=== PATIENT | female | born 1970 | race Caucasian/White ===

== ENCOUNTER 2016-10-29 16:28 | Outpatient (CLI) | payer MEDICAID ==
--- NOTE | 2016-10-30 11:02 | XRAY Report ---
LEFT KNEE, FOUR VIEWS: 10/29/2016 HISTORY: Pain. COMPARISON: None. FINDINGS: There is a suprapatellar effusion. Minimal lateral knee joint spurring with a suggestion of possible lateral meniscal chondrocalcinosis. Medial knee joint well-maintained. Mild patellofemo ral articulation degenerative spurring. No fracture or malalignment. IMPRESSION: MINOR EARLY DEGENERATIVE CHANGE LEFT KNEE WITH SUPRAPATELLAR EFFUSION. :9 JOB #: [id number] EXT JOB #:[id number]
== END 2016-10-29 16:29 | disposition home or self-care (01) ==
LOC: DI.S 16:28
PROVIDERS: ATTEND Nurse Practitioner Family
DX: M25.562 Pain in left knee (principal); M25.462 Effusion, left knee

== ENCOUNTER 2017-01-07 13:35 | Outpatient (CLI) | payer MEDICAID ==
[2017-01-07 18:39] LABS: ALBUMIN/GLOBULIN RATIO 1.5 (1.0-2.2); BILIRUBIN,TOTAL 0.5 mg/dL (0.2-1.0); BUN - BLOOD UREA NITROGEN 16 mg/dL (6-20); CALCIUM 9.5 mg/dL (8.5-10.3); CARBON DIOXIDE - CO2 26 mmol/L (21-32); CHLORIDE 104 mmol/L (101-111); CHOL/HDL RATIO 2.2 (<4.4); CHOLESTEROL 161 mg/dL; CREATININE 0.7 mg/dL (0.4-1.0); GFR - MDRD 90 (>89); GLUCOSE 82 mg/dL (70-100); HDL CHOLESTEROL 72 mg/dL; LDL/HDL RATIO 1.1 (<4.4); POTASSIUM 3.5 mmol/L (3.5-5.0); SODIUM 138 mmol/L (135-145); TOTAL PROTEIN 7.2 g/dL (6.7-8.2); TRIGLYCERIDES 52 mg/dL; VLDL CHOLESTEROL 10 mg/dL
[2017-01-07 18:41] LABS: BASOPHILS % (AUTO) 0.6 %; EOSINOPHILS # (AUTO) 0.1 10^3/uL (0.0-0.7); HCT - HEMATOCRIT 38.1 % (37.0-47.0); HGB - HEMOGLOBIN 12.7 g/dL (12.0-16.0); LYMPHOCYTES # (AUTO) 1.9 10^3/uL (1.5-3.5); LYMPHOCYTES % (AUTO) 37.2 %; MEAN CORPUSCULAR HEMOGLOBIN 30.1 pg (27.0-31.0); MEAN CORPUSCULAR HGB CONC 33.2 g/dL (32.0-36.0); MEAN CORPUSCULAR VOLUME 90.7 fL (81.0-99.0); MEAN PLATELET VOLUME 9.7 fL (7.9-10.8); MONOCYTES # (AUTO) 0.4 10^3/uL (0.0-1.0); MONOCYTES % (AUTO) 7.2 %; NEUTROPHILS # (AUTO) 2.7 10^3/uL (1.5-6.6); UNCORRECTED WHITE BLOOD COUNT 5.2 x10^3/uL; WHITE BLOOD COUNT 5.2 x10^3/uL (4.8-10.8)
== END 2017-01-07 13:36 | disposition home or self-care (01) ==
LOC: LAB.S 13:35
PROVIDERS: ATTEND Nurse Practitioner Family
DX: G43.909 Migraine, unspecified, not intractable, without status migrainosus (principal); Z13.6 Encounter for screening for cardiovascular disorders; L98.9 Disorder of the skin and subcutaneous tissue, unspecified
CPT/HCPCS: 36415; 80053; 80061; 84443; 85025

== ENCOUNTER 2017-01-25 10:09 | Outpatient (CLI) | payer MEDICAID ==
--- NOTE | 2017-01-30 08:53 | Ultrasound Report ---
ULTRASOUND RIGHT FACE: 01/25/2017 CLINICAL INDICATION: Palpable abnormalities. TECHNIQUE: Ultrasound of the palpable abnormalities identified by the patient was performed. COMPARISON: CT facial bones 10/06/2011. FINDINGS: The more anterior of the 2 palpable abnormalities appears to correlate with a circumscribed echogenic nodule in the subcutaneous fat, measuring 1.3 x 1.9 x 0.6 cm. This may represent a small lipoma. Alternatively , given the echogenicity of this circumscribed nodule, it may represent an accessory salivary gland. The second palpable abnormality, more posteriorly, correlates with the parotid gland, and contains a 0.9 x 0.7 x 0.5 cm lymph node in the superficial portion of the parotid gland. IMPRESSION: THE MORE ANTERIOR OF THE 2 PALPABLE ABNORMALITIES MAY REPRESENT A SMALL CIRCUMSCRIBED LIPOMA OR A SMALL ACCESSORY SALIVARY GLAND. THE MORE POSTERIOR OF THE 2 PALPABLE ABNORMALITIES CORRELATES WITH THE SUPERFICIAL PORTION OF THE PAROTID GLAND, WITH A NORMAL SIZED INTRAPAROTID LYMPH NODE. TD: 01/25/2017 13:16 JESSY
== END 2017-01-25 10:10 | disposition home or self-care (01) ==
LOC: DI 10:09
PROVIDERS: ATTEND Nurse Practitioner Family
DX: L98.9 Disorder of the skin and subcutaneous tissue, unspecified (principal)
CPT/HCPCS: 76536

== ENCOUNTER 2017-05-23 09:50 | Outpatient (CLI) | payer MEDICAID ==
--- NOTE | 2017-05-24 12:16 | Mammography Report ---
DIGITAL SCREENING MAMMOGRAM: 05/23/2017 CLINICAL INDICATION: A 47-year-old nulliparous patient, for screening. COMPARISON: Report of previous mammogram of 10/26/2004. Films have been purged. TECHNIQUE: Routine CC and MLO projections were obtained of the breasts. FINDINGS: The breasts demonstrate heterogeneously dense fibroglandular parenchyma bilaterally. No suspicious masses, clustered microcalcifications, or regions of architectural distortion are identified. IMPRESSION: NEGATIVE EXAMINATION. RECOMMENDATION: ROUTINE ANNUAL SCREENING UNLESS OTHERWISE CLINICALLY INDICATED. BIRADS CATEGORY 1-NEGATIVE. STANDARD QUALIFYING STATEMENTS: 1. This examination was reviewed with the aid of Computer-Aided Detection (CAD). 2. A negative or benign imaging report should not delay biopsy if clinically suspicious findings are present. Consider surgical consultation if warranted. More than 5% of cancers are not identified by imaging. 3. Dense breasts may obscure an underlying neoplasm. TD: 05/24/2017 12:15
== END 2017-05-23 09:51 | disposition home or self-care (01) ==
LOC: DI.S 09:50
PROVIDERS: ATTEND Nurse Practitioner Family
DX: Z12.31 Encounter for screening mammogram for malignant neoplasm of breast (principal)
CPT/HCPCS: 77067

== ENCOUNTER 2017-06-21 08:00 | Outpatient (CLI) | payer MEDICAID ==
[2017-06-21 18:03] LABS: CREATININE 0.7 mg/dL (0.4-1.0)
[2017-06-21 18:58] LABS: CREATININE,URINE 55.8 mg/dL
[2017-06-21 19:12] LABS: COLLECTION TIME,URINE 1440 min; TOTAL VOLUME,URINE 2650 mL
== END 2017-06-21 08:01 | disposition home or self-care (01) ==
LOC: LAB.F 08:00
PROVIDERS: ATTEND Transplant Surgery
DX: Z00.5 Encounter for examination of potential donor of organ and tissue (principal)
CPT/HCPCS: 36415; 82565; 82575

== ENCOUNTER 2017-06-27 09:07 | Outpatient (CLI) | payer MEDICAID ==
[2017-06-27 18:27] LABS: CREATININE 0.6 mg/dL (0.4-1.0)
[2017-06-27 19:02] LABS: CREATININE,URINE 63.9 mg/dL
== END 2017-06-27 09:08 | disposition home or self-care (01) ==
LOC: LAB.F 09:07
PROVIDERS: ATTEND Transplant Surgery
DX: Z00.5 Encounter for examination of potential donor of organ and tissue (principal)
CPT/HCPCS: 36415; 82565; 82570

== ENCOUNTER 2017-07-29 13:56 | Outpatient (CLI) | payer OTHER, MEDICAID | END 2017-07-29 13:57 | disposition home or self-care (01) | LOC: DI 13:56 | PROVIDERS: ATTEND Internal Medicine | DX: Z00.5 Encounter for examination of potential donor of organ and tissue (principal) | CPT/HCPCS: 93306 ==

== ENCOUNTER 2018-11-03 12:59 | Outpatient (CLI) | payer MEDICAID, OTHER ==
--- NOTE | 2018-11-03 15:05 | XRAY Report ---
Reason: KNEE PAIN LEFT, ACUTE, KNEE JOINT PAIN RIGHT Procedure Date: 11/03/2018 Accession Number: [id number] / [id number] Procedure: XRS - Knee 4 View LT CPT Code: FULL RESULT: EXAM: LEFT KNEE RADIOGRAPHY EXAM DATE: 11/03/2018 01:21 PM. CLINICAL HISTORY: Knee pain left, acute, knee joint pain right. COMPARISON: KNEE 4 VIEW LT 10/29/2016 4:44 PM. TECHNIQUE: 4 views. FINDINGS: Bones: Normal. No fractures or bone lesions. Joints: Normal. No effusion. No subluxations. Soft Tissues: Normal. No soft tissue swelling. IMPRESSION: No fracture or dislocation and no significant degenerative changes detected. RADIA
--- NOTE | 2018-11-03 15:11 | XRAY Report ---
Reason: KNEE PAIN, LEFT ACUTE, KNEE JOINT PAIN RIGHT Procedure Date: 11/03/2018 Accession Number: [id number] / [id number] Procedure: XRS - Knee 4 View RT CPT Code: FULL RESULT: EXAM: RIGHT KNEE RADIOGRAPHY EXAM DATE: 11/03/2018 01:21 PM. CLINICAL HISTORY: Knee pain, left acute, knee joint pain right. COMPARISON: KNEE 4 VIEW LT 11/03/2018 1:20 PM. TECHNIQUE: 4 views. FINDINGS: Bones: Normal. No fractures or bone lesions. Joints: Normal. No significant effusion. No subluxations. Soft Tissues: Normal. No soft tissue swelling. IMPRESSION: No fracture or dislocation is detected. No significant degenerative changes. RADIA
== END 2018-11-03 13:00 | disposition home or self-care (01) ==
LOC: DI.S 12:59
PROVIDERS: ATTEND Family Medicine
DX: M25.561 Pain in right knee (principal); M25.562 Pain in left knee

== ENCOUNTER 2019-06-18 10:57 | Emergency (ER) | payer MEDICAID ==
--- NOTE | 2019-06-18 11:35 | ED Physician Documentation ---
History of Present Illness - Stated complaint Stated Complaint: SOA,H/A - Chief complaint Chief Complaint: General - History obtained from History obtained from: Patient - History of Present Illness Timing: How many days ago (4) - Treatment prior to arrival Treatment prior to arrival: nothing - Additonal information Additional information: 49-year-old female presents today with what she calls a 4-day history of increasing shortness of breath. She states that roughly 4 days ago she started feeling like she was feeling sick. Stated that when she takes a deep breath it was hurting on the left side of her chest. She states that she was afebrile at that time, but developed a diaphoresis last night. She has felt warm, but she does not have a thermometer at home to take her temperature. She has also complained of a sore throat, burning sensation down the center of her chest. 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 Review of Systems Constitutional: reports: Fever, Chills, Sweats. denies: Myalgias, Fatigue, Weight Loss Eyes: reports: Reviewed and negative Ears: reports: Other (ithcy ears). denies: Loss of hearing, Ear pain Nose: reports: Congestion, Sinus pressure / pain Throat: reports: Sore throat. denies: Swollen tonsils Cardiac: reports: Chest pain / pressure (left side, only with deep breath.). denies: Palpitations, Pedal edema Respiratory: reports: Wheezing (x 2 days), Other (painful on left side with deep breath.) GI: reports: Reviewed and negative : reports: Reviewed and negative. 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 : None HEENT: None Psych: None Musculoskeletal: None Derm: None - Past Surgical History Past Surgical History: No - Allergies Allergies/Adverse Reactions: Allergies Allergy/AdvReac Type Severity Reaction Status Date / Time bee venom protein (honey bee) Allergy Unknown Verified 06/18/19 11:08 hydromorphone [From Dilaudid] Allergy Hives Verified 06/18/19 11:08 latex Allergy Unknown Verified 06/18/19 11:08 iv contrast Allergy Unknown Uncoded 06/18/19 11:08 - Social History Does the pt smoke?: Yes Smoking Status: Current some day smoker - Immunizations Immunizations are current?: Yes - POLST Patient has POLST: No PD ED PE NORMAL - General General: Alert and oriented X 3, No acute distress - HEENT HEENT: Atraumatic, PERRL, EOMI, Ears normal, Moist mucous membranes - Neck Neck: No adenopathy - Cardiac Cardiac: RRR, No murmur - Respiratory Respiratory: No respiratory distress, Clear bilaterally - Abdomen Abdomen: Normal bowel sounds, Soft, Non tender, Non distended - Back Back: No CVA TTP, No spinal TTP - Derm Derm: Normal color, Warm and dry, No rash - Extremities Extremities: No deformity, Normal ROM s pain - Neuro Neuro: Alert and oriented X 3, 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 No: Swollen tonsils, Tonsillar exudate, Soft palate petecchiae - Back Back: Normal exam, Normal ROM. No: Vertebral tenderness, Soft tissue tenderness, Limited ROM, CVA TTP right, CVA TTP left Results - Vitals Vitals: Vital Signs - 24 hr 06/18/19 11:01 Temperature 36.3 C L Heart Rate 68 Respiratory 16 Rate Blood Pressure 143/68 H O2 Saturation 98 Oxygen O2 Source Room air - Labs Labs: Laboratory Tests 06/18/19 06/18/19 11:38 11:40 WBC 4.5 L RBC 4.01 L Hgb 12.3 Hct 36.3 L MCV 90.5 MCH 30.7 MCHC 33.9 RDW 12.6 Plt Count 223 MPV 10.3 Neut # (Auto) 2.6 Lymph # (Auto) 1.2 L Garrett # (Auto) 0.4 Eos # (Auto) 0.2 Baso # (Auto) 0.0 Absolute Nucleated RBC 0.00 Nucleated RBC % 0.0 Urine Color YELLOW Urine Clarity CLEAR Urine pH 5.5 Ur Specific [place] <=1.005 Urine Protein NEGATIVE Urine Glucose (UA) NEGATIVE Urine Ketones NEGATIVE Urine Occult Blood TRACE-LYSE Urine Nitrite NEGATIVE Urine Bilirubin NEGATIVE Urine Urobilinogen 0.2 (NORMAL) Ur Leukocyte Esterase NEGATIVE Ur Microscopic Review NOT INDICATED Urine Culture Comments NOT INDICATED - Rads (name of study) No standard instances Radiology: EMP read contemporaneously (normal chest xray.), See rad report PD MEDICAL DECISION MAKING - ED course Complexity details: reviewed results, re-evaluated patient, d/w patient ED course: The pt's chest xray today is normal, lung sounds are clear without wheezing. She is afebrile today. Given her TTP frontal and maxillary sinuses and posterior pharynx with cobbles stoning she is most Surely dealing with acute frontal sinusitis. Patient does not want take antibiotics at this point she would rather do things naturally. Have encouraged patient to get some [id number] allergy medication, nasal spray, guaifenesin to take daily to help clear pain symptoms. Departure - Departure Disposition: 01 Home, Self Care Clinical Impression: Sinusitis chronic, frontal Condition: Good Instructions: ED Sinusitis No Abx Comments: Your chest xray today was normal today, did not show any pneumonia. I recommend that you get some Guaifenesin to take daily to help break up any congestion in your chest. Also I recommended you get some over the counter allergy medication and take it daily for at least the next 2 weeks to 1 month to help alleviate some your allergy symptoms (claritin, Zyrtec, Ana Laura). You can also get some Sudafed to take daily to help dry your sinuses. Drink plenty of clear fluids while you are taking medications to help thin out your secretions to clear them out. Should you develop a fever you are welcome to come back to be reevaluated.
[2019-06-18 11:49] LABS: BILIRUBIN,URINE NEGATIVE (NEGATIVE); GLUCOSE, URINE (UA) NEGATIVE (NEGATIVE); KETONES,URINE (UA) NEGATIVE (NEGATIVE); LEUKOCYTE ESTERASE, URINE NEGATIVE (NEGATIVE); NITRITE,URINE NEGATIVE (NEGATIVE); OCCULT BLOOD,URINE TRACE-LYSE (NEGATIVE); PH,URINE 5.5 PH (5.0-7.5); PROTEIN,URINE NEGATIVE (NEGATIVE); UROBILINOGEN,URINE 0.2 (NORMAL) E.U./dL (NORMAL)
[2019-06-18 11:49] LABS: BASOPHILS % (AUTO) 0.7 %; EOSINOPHILS # (AUTO) 0.2 10^3/uL (0.0-0.7); EOSINOPHILS % (AUTO) 5.1 %; HGB - HEMOGLOBIN 12.3 g/dL (12.0-16.0); LYMPHOCYTES # (AUTO) 1.2 10^3/uL (1.5-3.5); LYMPHOCYTES % (AUTO) 26.6 %; MEAN CORPUSCULAR HEMOGLOBIN 30.7 pg (27.0-31.0); MEAN CORPUSCULAR HGB CONC 33.9 g/dL (32.0-36.0); MEAN CORPUSCULAR VOLUME 90.5 fL (81.0-99.0); MEAN PLATELET VOLUME 10.3 fL (7.9-10.8); MONOCYTES # (AUTO) 0.4 10^3/uL (0.0-1.0); MONOCYTES % (AUTO) 9.8 %; NEUTROPHILS # (AUTO) 2.6 10^3/uL (1.5-6.6); NEUTROPHILS % (AUTO) 57.4 %; PLT - PLATELET COUNT 223 10^3/uL (130-450); RED BLOOD COUNT 4.01 10^6/uL (4.20-5.40); RED CELL DISTRIBUTION WIDTH 12.6 % (12.0-15.0); WHITE BLOOD COUNT 4.5 x10^3/uL (4.8-10.8)
[2019-06-18 11:50] LABS: CLARITY,URINE CLEAR (CLEAR)
--- NOTE | 2019-06-18 12:26 | XRAY Report ---
Reason: cough Procedure Date: 06/18/2019 Accession Number: [id number] / [id number] Procedure: XR - Chest 2 View X-Ray CPT Code: 60844 Final Report FULL RESULT: EXAM: CHEST RADIOGRAPHY EXAM DATE: 06/18/2019 11:58 AM. CLINICAL HISTORY: Chest/back pain with breathing. Congestion. Cough. COMPARISON: None. TECHNIQUE: 2 views. FINDINGS: Lungs/Pleura: No focal opacities evident. No pleural effusion. No pneumothorax. Normal volumes. Mediastinum: Heart size and mediastinal contour are within normal limits. Other: Mild degenerative changes of the thoracic spine. Surgical clips are seen in the medial left upper quadrant. IMPRESSION: 1. No acute disease in the chest. RADIA
[2019-06-18 12:50] VITALS: BP 107/70
== END 2019-06-18 12:51 | disposition home or self-care (01) ==
LOC: ED 10:57
DX: J32.1 Chronic frontal sinusitis (principal); Z20.828 Contact with and (suspected) exposure to other viral communicable diseases; F17.200 Nicotine dependence, unspecified, uncomplicated
CPT/HCPCS: 36415; 71046; 81001; 81003; 81599; 85025; 87086; 99284

== ENCOUNTER 2019-11-16 17:27 | Outpatient (CLI) | payer MEDICAID | END 2019-11-16 17:28 | disposition critical access hospital (66) | LOC: EMS 17:27 | PROVIDERS: ATTEND Surgery | DX: F41.9 Anxiety disorder, unspecified (principal); R20.0 Anesthesia of skin; R20.2 Paresthesia of skin | CPT/HCPCS: A0425; A0429; A0999 ==

== ENCOUNTER 2019-11-16 18:01 | Emergency (ER) | payer MEDICAID ==
[2019-11-16] MEDS ORDERED: LORazepam 2 MG/ML VIAL IVP STA (18:49)
[2019-11-16] MEDS ORDERED: cefTRIAXone 1 GM VIAL IVP STA (18:49)
[2019-11-16 19:01] LABS: BILIRUBIN,URINE NEGATIVE (NEGATIVE); GLUCOSE, URINE (UA) NEGATIVE (NEGATIVE); KETONES,URINE (UA) 15 mg/dL (NEGATIVE); LEUKOCYTE ESTERASE, URINE LARGE (NEGATIVE); NITRITE,URINE NEGATIVE (NEGATIVE); OCCULT BLOOD,URINE NEGATIVE (NEGATIVE); PH,URINE 7.5 PH (5.0-7.5); PROTEIN,URINE NEGATIVE (NEGATIVE); UROBILINOGEN,URINE 0.2 (NORMAL) E.U./dL (NORMAL)
[2019-11-16 19:03] LABS: CLARITY,URINE CLEAR (CLEAR)
--- NOTE | 2019-11-16 19:03 | ED Physician Documentation ---
History of Present Illness - Stated complaint Stated Complaint: ANXIETY - Chief complaint Chief Complaint: General - History obtained from History obtained from: Patient - History of Present Illness Pain level max: 5 Pain level now: 3 - Additonal information Additional information: 49-year-old female with multiple complaints today. The first is that she feels like she is having more frequent panic attacks. She states that she feels anxious, her chest feels tight and she gets tingling in her bilateral hands. This is been ongoing for quite some time. She used to be able to control this with CBD oil, but states that she thinks she needs medication now. The second is a fractured right upper tooth, she states that they started to do a root canal on this tooth, but she lost her dental insurance. She has been placing cotton gauze in the tooth daily when she eats and covering it and oregano oil. Patient also states that she had multiple head and neck injuries in the past and has been having neck pain recently. Nothing makes it better or worse. She states that when she has a panic attack she feels lightheaded and dizzy. Review of Systems Ten Systems: 10 systems reviewed and negative Constitutional: denies: Fever, Chills Eyes: reports: Other (Patient states that if she turns her head quickly to one side or the other she sees ghosting of images. this is intermittent). denies: Decreased vision, Photophobia Ears: denies: Ear pain Nose: denies: Rhinorrhea / runny nose, Congestion Throat: denies: Sore throat Cardiac: denies: Chest pain / pressure, Palpitations Respiratory: denies: Dyspnea, Cough, Wheezing GI: denies: Abdominal Pain, Nausea, Vomiting, Diarrhea Skin: denies: Rash Musculoskeletal: reports: Neck pain. denies: Back pain Neurologic: reports: Syncope (Patient states she had a syncopal event 2 weeks ago after she had stood up and picked up her dogs.). 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 HEENT: None Psych: Anxiety Musculoskeletal: None Derm: None - Past Surgical History Past Surgical History: Yes Ortho: Other - Present Medications Home Medications: Ambulatory Orders Medication Instructions Recorded Confirmed Cefdinir 300 mg PO BID #20 capsule 11/16/19 LORazepam [Ativan] 1 mg PO Q8H PRN #7 tablet 11/16/19 Meclizine HCl 25 mg PO Q6H PRN #20 tablet 11/16/19 - Allergies Allergies/Adverse Reactions: Allergies Allergy/AdvReac Type Severity Reaction Status Date / Time bee venom protein (honey bee) Allergy Unknown Verified 11/16/19 18:05 hydromorphone [From Dilaudid] Allergy Hives Verified 11/16/19 18:05 latex Allergy Unknown Verified 11/16/19 18:05 iv contrast Allergy Unknown Uncoded 06/18/19 11:08 - Social History Does the pt smoke?: Yes Smoking Status: Current every day smoker Does the pt drink ETOH?: Yes Does the pt have substance abuse?: No - Immunizations Immunizations are current?: Yes - POLST Patient has POLST: No PD ED PE NORMAL - Vitals Vital signs reviewed: Yes - General General: Alert and oriented X 3, No acute distress, Well developed/nourished - HEENT HEENT: Atraumatic, PERRL, EOMI, Moist mucous membranes, Pharynx benign (no peritonsillar or retropharyngeal abscess), Other (Fractured right upper molar, there appears to be a decayed molar next to this 1. The tooth appears to have been drilled down into the bone. No drainable abscess. normal phonation. 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, No motor deficit, No sensory deficit, Normal speech Eye Opening: Spontaneous Motor: Obeys Commands Verbal: Oriented GCS Score: 15 - Psych Psych: Normal mood, Normal affect Results - Vitals Vitals: Vital Signs - 24 hr 11/16/19 11/16/19 11/16/19 18:05 18:18 19:58 Temperature 36.6 C 36.6 C 37.1 C Heart Rate 95 95 87 Respiratory 24 24 18 Rate Blood Pressure 114/85 H 114/85 H 127/87 H O2 Saturation 96 96 98 11/16/19 20:17 Temperature 37.1 C Heart Rate 70 Respiratory 16 Rate Blood Pressure 114/85 H O2 Saturation 100 Oxygen O2 Source Room air - EKG (time done) 1857 Rate: Rate (enter#) (60) Rhythm: NSR Bill[place]: Normal Intervals: Normal AK QRS: Normal Ischemia: Normal ST segments - Labs Labs: Laboratory Tests 11/16/19 11/16/19 11/16/19 18:15 18:15 19:05 WBC 5.4 RBC 4.27 Hgb 12.9 Hct 38.5 MCV 90.2 MCH 30.2 MCHC 33.5 RDW 12.0 Plt Count 212 MPV 10.4 Neut # (Auto) 3.2 Lymph # (Auto) 1.5 Banner # (Auto) 0.5 Eos # (Auto) 0.2 Baso # (Auto) 0.0 Absolute Nucleated RBC 0.00 Nucleated RBC % 0.0 Sodium Potassium Chloride Carbon Dioxide Anion Gap BUN Creatinine Estimated GFR (MDRD) Glucose Calcium Total Bilirubin AST ALT Alkaline Phosphatase Total Protein Albumin Globulin Albumin/Globulin Ratio Lipase Urine Color YELLOW Urine Clarity CLEAR Urine pH 7.5 Ur Specific [place] 1.015 1.015 Urine Protein NEGATIVE Urine Glucose (UA) NEGATIVE Urine Ketones 15 H Urine Occult Blood NEGATIVE Urine Nitrite NEGATIVE Urine Bilirubin NEGATIVE Urine Urobilinogen 0.2 (NORMAL) Ur Leukocyte Esterase LARGE H Urine RBC 0-5 Urine WBC 11-25 H Urine WBC Clumps PRESENT Ur Squamous Epith Cells RARE Squamous Urine Bacteria Moderate H Ur Microscopic Review INDICATED Urine Culture Comments INDICATED Urine HCG, Qual NEGATIVE 11/16/19 19:05 WBC RBC Hgb Hct MCV MCH MCHC RDW Plt Count MPV Neut # (Auto) Lymph # (Auto) Banner # (Auto) Eos # (Auto) Baso # (Auto) Absolute Nucleated RBC Nucleated RBC % Sodium 140 Potassium 3.7 Chloride 104 Carbon Dioxide 24 Anion Gap 12.0 BUN 15 Creatinine 1.1 H Estimated GFR (MDRD) 53 L Glucose 95 Calcium 10.2 Total Bilirubin 0.9 AST 19 ALT 15 Alkaline Phosphatase 71 Total Protein 7.7 Albumin 4.5 Globulin 3.2 Albumin/Globulin Ratio 1.4 Lipase 36 Urine Color Urine Clarity Urine pH Ur Specific [place] Urine Protein Urine Glucose (UA) Urine Ketones Urine Occult Blood Urine Nitrite Urine Bilirubin Urine Urobilinogen Ur Leukocyte Esterase Urine RBC Urine WBC Urine WBC Clumps Ur Squamous Epith Cells Urine Bacteria Ur Microscopic Review Urine Culture Comments Urine HCG, Qual - Rads (name of study) head CT Radiology: Prelim report reviewed, EMP read contemporaneously, See rad report (No acute process. ) cervical spine Ct Radiology: Prelim report reviewed, EMP read contemporaneously, See rad report (1. No fracture. 2. Multilevel degenerative disc and facet disease. This could be further assessed with nonemergent outpatient follow-up MRI of the cervical spine, if clinically indicated. ) PD MEDICAL DECISION MAKING - ED course Complexity details: reviewed results, re-evaluated patient, considered differential, d/w patient ED course: Patient with multiple medical issues. Cavit was placed over the cracked tooth. All of the cotton was removed first. She is found to have a UTI. Will place her on antibiotics for the UTI and the dental caries. Patient also given Ativan and her anxiety resolved. Does have degenerative disc and facet disease in her cervical spine, recommend MRI as this may be contributing to the tingling in her fingertips as well. She was also given IV fluids and meclizine. Dizziness improved. We will have her follow-up with her doctor for further evaluation and care. Normal neurological exam. NIH stroke scale of 0. Patient counseled regarding signs and symptoms for which I believe and urgent re-evaluation would be necessary. Patient with good understanding of and agreement to plan and is comfortable going home at this time This document was made in part using voice recognition software. While efforts are made to proofread this document, sound alike and grammatical errors may occur. Departure - Departure Disposition: 01 Home, Self Care Clinical Impression: Dental caries, Anxiety, Degenerative disc disease, cervical UTI (urinary tract infection) Qualifiers: Urinary tract infection type: acute cystitis Hematuria presence: without hematuria Qualified Code(s): N30.00 - Acute cystitis without hematuria Condition: Good Instructions: ED Cavity Dental, ED UTI Cystitis Male, ED Panic Attack Follow-Up: [facility] [Provider Group] [facility] [Provider Group] - Within 1 week Prescriptions: LORazepam [Ativan] 1 mg PO Q8H PRN #7 tablet PRN Reason: Anxiety Cefdinir 300 mg PO BID #20 capsule Meclizine HCl 25 mg PO Q6H PRN #20 tablet PRN Reason: Vertigo Comments: Take all antibiotics until gone. Return if you worsen. Follow-up with your dentist regarding her tooth, we need to be careful to ensure that the infection is not spreading into your maxilla. It is importantly follow-up as soon as possible. You also need to follow-up with your primary care provider for further testing, you likely need an outpatient MRI of your cervical spine to evaluate your degenerative disc and facet disease. Do not drive or operate heavy machinery when taking the Ativan. This will help with the anxiety, but you should not be driving on this medication.
[2019-11-16 19:05] LABS: HCG UR QUAL NEGATIVE
[2019-11-16] MEDS ORDERED: IOVERSOL 320 100 ML VIAL IVP ONE (19:05)
[2019-11-16 19:09] LABS: BASOPHILS % (AUTO) 0.6 %; EOSINOPHILS # (AUTO) 0.2 10^3/uL (0.0-0.7); EOSINOPHILS % (AUTO) 2.8 %; HGB - HEMOGLOBIN 12.9 g/dL (12.0-16.0); LYMPHOCYTES # (AUTO) 1.5 10^3/uL (1.5-3.5); LYMPHOCYTES % (AUTO) 27.1 %; MEAN CORPUSCULAR HEMOGLOBIN 30.2 pg (27.0-31.0); MEAN CORPUSCULAR HGB CONC 33.5 g/dL (32.0-36.0); MEAN CORPUSCULAR VOLUME 90.2 fL (81.0-99.0); MEAN PLATELET VOLUME 10.4 fL (7.9-10.8); MONOCYTES # (AUTO) 0.5 10^3/uL (0.0-1.0); MONOCYTES % (AUTO) 10.1 %; NEUTROPHILS # (AUTO) 3.2 10^3/uL (1.5-6.6); PLT - PLATELET COUNT 212 10^3/uL (130-450); RED BLOOD COUNT 4.27 10^6/uL (4.20-5.40); WHITE BLOOD COUNT 5.4 x10^3/uL (4.8-10.8)
[2019-11-16 19:10] LABS: BACTERIA,URINE Moderate /HPF (None Seen); RBC,URINE 0-5 /HPF (0-5); SQUAMOUS EPITHELIAL CELL,UR RARE Squamous (<= Few); WBC CLUMPS,URINE PRESENT
[2019-11-16 19:22] LABS: ALBUMIN 4.5 g/dL (3.2-5.5); ALBUMIN/GLOBULIN RATIO 1.4 (1.0-2.2); BILIRUBIN,TOTAL 0.9 mg/dL (0.2-1.0); CALCIUM 10.2 mg/dL (8.5-10.3); CREATININE 1.1 mg/dL (0.4-1.0); TOTAL PROTEIN 7.7 g/dL (6.7-8.2)
--- NOTE | 2019-11-16 20:10 | CT Report ---
PROCEDURE: HEAD WO INDICATIONS: headaches, vision changes with turning head TECHNIQUE: Noncontrast 4.5 mm thick angled axial sections acquired from the foramen magnum to the vertex. For r adiation dose reduction, the following was used: automated exposure control, adjustment of mA and/or kV according to patient size. COMPARISON: None. FINDINGS: Image quality: Excellent. CSF spaces: Basal cisterns are patent. No extra-axial fluid collections. Ventricles are normal in size and shape. Brain: No midline shift. No intracranial masses or hemorrhage. [place]-white matter interface is norm al. Skull and face: Calvarium and visualized facial bones are intact, without suspicious lesions. Sinuses: Visualized sinuses and mastoids are clear. IMPRESSION: No acute process. Reviewed by: Esme Romero MD on 11/16/2019 8:09 PM PDT Approved by: Esme Romero MD on 11/16/2019 8:09 PM PDT Station ID: [id number]
--- NOTE | 2019-11-16 20:12 | CT Report ---
PROCEDURE: CERVICAL SPINE WO INDICATIONS: neck pain, vision changes when turning head TECHNIQUE: Noncontrast 3 mm thick sections acquired from the skull base to the T4 level. Sagittal and coronal r eformats were then constructed. For radiation dose reduction, the following was used: automated exp osure control, adjustment of mA and/or kV according to patient size. COMPARISON: None. FINDINGS: Image quality: Excellent. Bones: No fractures or dislocations. Visualized superior ribs are intact. Soft tissues: Prevertebral soft tissues are normal in thickness. No paravertebral hematomas. No ap ical pneumothoraces. Multilevel degenerative disc and facet disease is present. IMPRESSION: 1. No fracture. 2. Multilevel degenerative disc and facet disease. This could be further assessed with nonemergent ou tpatient follow-up MRI of the cervical spine, if clinically indicated. Reviewed by: Esme Romero MD on 11/16/2019 8:10 PM PDT Approved by: Esme Romero MD on 11/16/2019 8:10 PM PDT Station ID: [id number]
[2019-11-16] MEDS ORDERED: SODIUM CHLORIDE 0.9% 1,000 ML IV STA (20:25)
[2019-11-16] MEDS ORDERED: MECLIZINE 12.5 MG TABLET PO STA (20:25)
[2019-11-16 21:12] VITALS: BP 109/69
== END 2019-11-16 21:29 | disposition home or self-care (01) ==
LOC: ED 18:01
DX: N30.00 Acute cystitis without hematuria (principal); S02.5XXA Fracture of tooth (traumatic), initial encounter for closed fracture; M50.30 Other cervical disc degeneration, unspecified cervical region; M47.812 Spondylosis without myelopathy or radiculopathy, cervical region; F17.200 Nicotine dependence, unspecified, uncomplicated; X58.XXXA Exposure to other specified factors, initial encounter
CPT/HCPCS: 36415; 70450; 72125; 80053; 81001; 81025; 83690; 85025; 87086; 93005; 96374; 96375; 99284; A9270; J2060; Q9967; 81003

== ENCOUNTER 2019-12-31 13:26 | Outpatient (CLI) | payer MEDICAID | END 2019-12-31 13:27 | disposition home or self-care (01) | LOC: COV 13:26 | PROVIDERS: ATTEND Family Medicine | DX: R50.9 Fever, unspecified (principal); R05 Cough; R06.2 Wheezing; M79.10 Myalgia, unspecified site; R53.83 Other fatigue; J02.9 Acute pharyngitis, unspecified; R19.7 Diarrhea, unspecified; R09.81 Nasal congestion; Z20.828 Contact with and (suspected) exposure to other viral communicable diseases ==

== ENCOUNTER 2021-11-07 08:00 | Outpatient (CLI) | payer MEDICAID | END 2021-11-07 23:59 | disposition home or self-care (01) | LOC: LAB 08:00 | PROVIDERS: ATTEND Physician Assistant Medical | DX: R10.11 Right upper quadrant pain (principal); Z52.4 Kidney donor | CPT/HCPCS: 87086 ==

== ENCOUNTER 2021-11-07 14:44 | Outpatient (CLI) | payer MEDICAID ==
[2021-11-07 19:48] LABS: BASOPHILS # (AUTO) 0.1 10^3/uL (0.0-0.1); BASOPHILS % (AUTO) 0.9 %; EOSINOPHILS # (AUTO) 0.4 10^3/uL (0.0-0.7); EOSINOPHILS % (AUTO) 6.4 %; HCT - HEMATOCRIT 40.1 % (37.0-47.0); HGB - HEMOGLOBIN 13.2 g/dL (12.0-16.0); LYMPHOCYTES # (AUTO) 1.6 10^3/uL (1.5-3.5); LYMPHOCYTES % (AUTO) 23.4 %; MEAN CORPUSCULAR HEMOGLOBIN 30.2 pg (27.0-31.0); MEAN CORPUSCULAR HGB CONC 32.9 g/dL (32.0-36.0); MEAN CORPUSCULAR VOLUME 91.8 fL (81.0-99.0); MEAN PLATELET VOLUME 11.9 fL (7.9-10.8); MONOCYTES # (AUTO) 0.6 10^3/uL (0.0-1.0); MONOCYTES % (AUTO) 8.6 %; NEUTROPHILS # (AUTO) 4.2 10^3/uL (1.5-6.6); NEUTROPHILS % (AUTO) 60.6 %; PLT - PLATELET COUNT 219 10^3/uL (130-450); RED BLOOD COUNT 4.37 10^6/uL (4.20-5.40); WHITE BLOOD COUNT 6.9 x10^3/uL (4.8-10.8)
[2021-11-07 19:58] LABS: ALBUMIN/GLOBULIN RATIO 1.3 (1.0-2.2); BILIRUBIN,TOTAL 0.4 mg/dL (0.2-1.0); CALCIUM 9.4 mg/dL (8.5-10.3); POTASSIUM 4.7 mmol/L (3.5-5.0); TOTAL PROTEIN 7.2 g/dL (6.7-8.2)
== END 2021-11-07 14:45 | disposition home or self-care (01) ==
LOC: LAB.S 14:44
PROVIDERS: ATTEND Physician Assistant Medical
DX: R10.9 Unspecified abdominal pain (principal)
CPT/HCPCS: 36415; 80053; 85025

== ENCOUNTER 2022-10-18 11:28 | Outpatient (CLI) | payer MEDICAID | END 2022-10-18 11:29 | disposition critical access hospital (66) | LOC: EMS 11:28 | DX: R07.89 Other chest pain (principal); M54.9 Dorsalgia, unspecified; F41.9 Anxiety disorder, unspecified | CPT/HCPCS: A0425; A0429; A0999 ==

== ENCOUNTER 2022-10-18 12:06 | Emergency (ER) | payer MEDICAID ==
--- NOTE | 2022-10-18 12:17 | ED Physician Documentation ---
PD HPI CHEST PAIN - Stated complaint Stated Complaint: CHEST/BACK PX - Chief complaint Chief Complaint: Cardiac - History obtained from History obtained from: Patient, EMS - Additional information Additional information: 52-year-old woman with history of elective nephrectomy for donation, long COVID, anxiety with family history of Kacey-Danlos and diabetes in her mom and A-fib in her dad. Last night she was taking a shower that she was thought was too hot. She got dizzy and fell. She caught herself with her hands and then hit her cheek which is still mildly painful on the right on the edge of the tub. She vacillates as to whether or not she passed out but does not think she did. She was feeling weak and dizzy persistently after that last night and this morning developed mid/upper back pain. It radiated to the chest slightly but really she only noticed the chest pain when it was palpated. She came from the clinic with an unremarkable EKG but persistent mostly back pain. She received aspirin prior to arrival. She declines pain medications on initial evaluation. 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 : None, Incontinence, Nocturia, Frequency HEENT: None Psych: Anxiety, Panic attacks Musculoskeletal: Chronic back pain Derm: None - Past Surgical History Past Surgical History: Yes Ortho: Other - Present Medications Home Medications: Ambulatory Orders Medication Instructions Recorded Confirmed Carisoprodol [Soma] 350 mg PO Q8HR PRN #15 tablet 10/18/22 HYDROcod/ACETAM 5/325 [Paxinos 5/325] 1 - 2 tab PO Q6H PRN #7 tablet 10/18/22 Lidocaine Patch 5% [Lidoderm Patch] 1 patch TOP DAILY PRN #10 patch 10/18/22 - Allergies Allergies/Adverse Reactions: Allergies Allergy/AdvReac Type Severity Reaction Status Date / Time bee venom protein (honey bee) Allergy Unknown Verified 10/18/22 12:11 hydromorphone [From Dilaudid] Allergy Hives Verified 10/18/22 12:11 latex Allergy Unknown Verified 10/18/22 12:11 iv contrast Allergy Unknown Uncoded 10/18/22 12:11 - Social History Does the pt smoke?: Yes Smoking Status: Light tobacco smoker Does the pt drink ETOH?: Yes Does the pt have substance abuse?: No - Immunizations Immunizations are current?: Yes - POLST Patient has POLST: No PD ED PE NORMAL - Vitals Vital signs reviewed: Yes - General General: Alert and oriented X 3, Other (Appears uncomfortable from pain and slightly anxious) - HEENT HEENT: PERRL, EOMI - Neck Neck: Supple, no meningeal sign, No bony TTP - Cardiac Cardiac: RRR, No murmur, Other (Quite tender to the mid and upper back and also the sternum.) - Respiratory Respiratory: No respiratory distress, Clear bilaterally - Abdomen Abdomen: Non tender - Derm Derm: Normal color, Warm and dry - Extremities Extremities: No edema, No calf tenderness / cord - Neuro Neuro: Alert and oriented X 3, Normal speech Results - Vitals Vitals: Vital Signs - 24 hr 10/18/22 10/18/22 10/18/22 12:08 14:26 14:27 Temperature 36.1 C L Heart Rate 70 62 64 Respiratory 16 17 17 Rate Blood Pressure 130/71 134/89 H 122/80 O2 Saturation 100 99 97 10/18/22 10/18/22 10/18/22 14:32 15:20 16:00 Temperature Heart Rate 59 L 58 L 59 L Respiratory 16 18 12 Rate Blood Pressure 133/78 H 121/62 128/68 O2 Saturation 97 100 97 Oxygen O2 Source Room air - EKG (time done) 1219 EKG releavant findings:: EKG personally interpreted by author of this note. Relevant findings are: Rate: Rate (enter#) (57) Rhythm: NSR Cass: Normal Intervals: Prolonged OH, Wide QRS (mild ivcd qrsd 121) QRS: Normal Ischemia: Normal ST segments - Labs Labs: Laboratory Tests 10/18/22 10/18/22 12:29 12:29 WBC 5.4 RBC 4.26 Hgb 12.8 Hct 38.2 MCV 89.7 MCH 30.0 MCHC 33.5 RDW 12.7 Plt Count 227 MPV 10.8 Neut # (Auto) 3.0 Lymph # (Auto) 1.7 Marshall # (Auto) 0.4 Eos # (Auto) 0.2 Baso # (Auto) 0.1 Absolute Nucleated RBC 0.00 Nucleated RBC % 0.0 Sodium 138 Potassium 3.7 Chloride 108 Carbon Dioxide 23 Anion Gap 7.0 BUN 20 Creatinine 0.9 Estimated GFR (MDRD) 66 L Glucose 88 Calcium 10.3 Total Bilirubin 0.3 AST 34 ALT 42 Alkaline Phosphatase 81 Troponin I High Sens 2.5 Total Protein 6.9 Albumin 4.2 Globulin 2.7 Albumin/Globulin Ratio 1.6 Lipase 33 - Rads (name of study) 1v chest- NAD Relevant Findings:: Final report received, EMP independent interpretation of test CT cervical spine showing minimal degenerative changes, no acute disease Relevant Findings:: Final report received, EMP independent interpretation of test CT angio chest demonstrates gallstones, Relevant Findings:: Final report received, EMP independent interpretation of test PD Medical Decision Making - ED course ED course: She had a syncopal or near syncopal episode last night and a hot shower, and then fell. This morning with chest and back pain. He does get a lot worse with rotation and palpation suggesting a musculoskeletal cause. That said with the family history of Kacey-Danlos a dissection must be considered in ACS as well. She had a nonischemic EKG and negative troponin. She is PERC negative. She went over to CT, the military technician noted to me that she had "a delayed reaction to iodine" in the past and she was administered dexamethasone to prevent that. On return from CT she noted increased neck pain and did have some mild diffuse C- spine tenderness and was sent back for cervical spine CT. This was also negative. By process of elimination I think she is having a lot of chest wall and musculoskeletal back pain related to her syncopal episode last night. Discussed need for follow-up with her primary for the syncope. Departure - Departure Disposition: 01 Home, Self Care Clinical Impression: Syncope Qualifiers: Syncope type: unspecified Qualified Code(s): R55 - Syncope and collapse Chest pain Qualifiers: Chest pain type: unspecified Qualified Code(s): R07.9 - Chest pain, unspecified Back pain Qualifiers: Back pain location: thoracic back pain Back pain laterality: midline Condition: Good Record reviewed to determine appropriate education?: Yes Instructions: ED Strain Chest Wall, ED Fainting Unkn Cause Prescriptions: Carisoprodol [Soma] 350 mg PO Q8HR PRN #15 tablet PRN Reason: Spasms Lidocaine Patch 5% [Lidoderm Patch] 1 patch TOP DAILY PRN #10 patch PRN Reason: pain HYDROcod/ACETAM 5/325 [Paxinos 5/325] 1 - 2 tab PO Q6H PRN #7 tablet PRN Reason: Pain Comments: You were seen today because you passed out last night and then developed chest and back pain today. There was really no abnormal findings on your labs which included specific heart testing, your EKG, and a CAT scan of your chest and neck with the exception of the incidental finding of gallstones. Call your doctor to arrange a follow-up appointment, make the next available appointment. In the interim, return anytime if worse or if new symptoms develop. I sent your prescription electronically to the [facility] in [place]. I am prescribing a short course of narcotic pain medication for you. These are potentially dangerous and addictive medications that should be used carefully. These medications may constipate you. Take an uteb-izb-zoaaqwd stool softener (docusate) twice daily with plenty of water while taking these medications. If you go 24 hours without a bowel movement, take [id number]-jth-[id number] miralax, per package instructions. Do not drink or drive while taking these medications. If you received narcotic or sedating medications while in the emergency department, do not drive for 24 hours. Store this medication in a safe, secure place and out of reach of children. It is a violation of federal law to give or sell this medication to another person or to use in a manner other than prescribed. The ED will not refill narcotic prescriptions, including prescriptions lost or stolen. To dispose of unwanted medications: 1. [facility] provides a [facility] box for medication in pill form only (no liquids) 8:00 am to 4:30 p.m. Saturday-Saturday in the lobby of the [facility], [address] [place] [address]. Empty pills into ziplock bag before disposal. Call [phone] for information. 2.[employer] is a free service available to all [facility] residents. Go to [email or web address] Note that many narcotic pain relievers also contain Tylenol/acetaminophen. Please ensure that your total dose of acetaminophen from all sources does not exceed 3 g (3000 mg) per day. Forms: PCP List
[2022-10-18] MEDS ORDERED: MORPHINE 10 MG/ML VIAL IVP STA (12:21)
[2022-10-18 12:33] LABS: BASOPHILS # (AUTO) 0.1 10^3/uL (0.0-0.1); BASOPHILS % (AUTO) 0.9 %; EOSINOPHILS # (AUTO) 0.2 10^3/uL (0.0-0.7); EOSINOPHILS % (AUTO) 3.5 %; HCT - HEMATOCRIT 38.2 % (37.0-47.0); HGB - HEMOGLOBIN 12.8 g/dL (12.0-16.0); LYMPHOCYTES # (AUTO) 1.7 10^3/uL (1.5-3.5); LYMPHOCYTES % (AUTO) 32.2 %; MEAN CORPUSCULAR HGB CONC 33.5 g/dL (32.0-36.0); MEAN CORPUSCULAR VOLUME 89.7 fL (81.0-99.0); MEAN PLATELET VOLUME 10.8 fL (7.9-10.8); MONOCYTES # (AUTO) 0.4 10^3/uL (0.0-1.0); NEUTROPHILS % (AUTO) 55.2 %; PLT - PLATELET COUNT 227 10^3/uL (130-450); RED BLOOD COUNT 4.26 10^6/uL (4.20-5.40); RED CELL DISTRIBUTION WIDTH 12.7 % (12.0-15.0); WHITE BLOOD COUNT 5.4 x10^3/uL (4.8-10.8)
--- NOTE | 2022-10-18 12:46 | XRAY Report ---
PROCEDURE: Chest 1 View X-Ray INDICATIONS: Chest Pain TECHNIQUE: One view of the chest was acquired. COMPARISON: 06/18/2019 FINDINGS: Surgical changes and devices: None. Lungs and pleura: No pleural effusions or pneumothorax. Lungs are clear. Mediastinum: Mediastinal contours appear normal. Heart size is normal. Bones and chest wall: No suspicious bony lesions. Overlying soft tissues appear unremarkable. IMPRESSION: No acute process. Reviewed by: Esme Romero MD on 10/18/2022 12:45 PM PDT Approved by: Esme Romero MD on 10/18/2022 12:45 PM PDT Station ID: [id number]
[2022-10-18 12:47] LABS: ALBUMIN 4.2 g/dL (3.2-5.5); ALBUMIN/GLOBULIN RATIO 1.6 (1.0-2.2); BILIRUBIN,TOTAL 0.3 mg/dL (0.2-1.0); CALCIUM 10.3 mg/dL (8.5-10.3); CREATININE 0.9 mg/dL (0.6-1.3); POTASSIUM 3.7 mmol/L (3.5-4.5); TOTAL PROTEIN 6.9 g/dL (6.4-8.9)
[2022-10-18 12:53] LABS: TROPONIN I HIGH SENSITIVITY 2.5 ng/L (2.3-14.8)
[2022-10-18] MEDS ORDERED: DEXAMETHASONE 10 MG/ML VIAL IVP STA (13:01)
[2022-10-18] MEDS ORDERED: CYCLOBENZAPRINE 10 MG TABLET PO STA (13:33)
--- NOTE | 2022-10-18 13:56 | CT Report ---
PROCEDURE: ANGIO CHEST W/WO INDICATIONS: Aortic protocol, chest and back pain CONTRAST: 80ml omni 300 TECHNIQUE: After the administration of intravenous contrast, 2 mm axial images were acquired from the pulmonary apices to the posterior costophrenic angles during the arterial phase. In addition, 1 mm lung kernel and 5 mm soft tissue kernel reconstructions were performed. 3-dimensional coronal oblique maximum int ensity projection (MIP) reformats, 8 mm axial MIP, and 5 mm coronal and sagittal MPR reformats were t hen performed through the thorax. For radiation dose reduction, the following was used: automated exp osure control, adjustment of mA and/or kV according to patient size. COMPARISON: None FINDINGS: Image quality: Good Lungs and pleura:No dense consolidation. No pleural effusions. Mild basal scarring/atelectasis. Mediastinum, heart, and esophagus: On precontrast imaging, no intramural hematoma is identified. On a rterial phase imaging, no evidence of aneurysm or dissection. Left renal artery is absent. Coronary c alcifications are seen. No central pulmonary embolism. Small hiatal hernia. No pathologic lymph nodes by size criteria. Evaluation of the ascending aorta is limited due to motion. Chest wall and thyroid: Unremarkable Upper abdomen: Cholelithiasis. No gross abnormality on these arterial phase images. Left nephrectomy changes Bones: No acute or suspicious osseous finding. IMPRESSION: No acute aortic syndrome identified. No acute thoracic abnormality. Other findings as above. Coronary calcifications are seen. Reviewed by: Rashel Chanel MD on 10/18/2022 1:55 PM PDT Approved by: Rashel Chanel MD on 10/18/2022 1:55 PM PDT Station ID: [id number]
[2022-10-18] MEDS ORDERED: LIDOCAINE PATCH 5% TOP STA (15:41)
--- NOTE | 2022-10-18 16:08 | CT Report ---
PROCEDURE: CERVICAL SPINE WO INDICATIONS: neck inj TECHNIQUE: Noncontrast 3 mm thick sections acquired from the skull base to the T4 level. Sagittal and coronal r eformats were then constructed. For radiation dose reduction, the following was used: automated exp osure control, adjustment of mA and/or kV according to patient size. COMPARISON: 11/16/2019 FINDINGS: Image quality: Good Bones: Minimal degenerative changes. Vertebral body heights are well-maintained. No traumatic subluxa tion. Soft tissues: Similar prominent right paratracheal lymph node. No pathologic prevertebral soft tissue swelling. IMPRESSION: Minimal degenerative changes. No acute fracture or traumatic subluxation. If there is high concern fo r further derangement, consider MRI evaluation. Reviewed by: Rashel Chanel MD on 10/18/2022 4:07 PM PDT Approved by: Rashel Chanel MD on 10/18/2022 4:07 PM PDT Station ID: [id number]
[2022-10-18 16:17] VITALS: O2SAT 97
[2022-10-18] MEDS ORDERED: IOVERSOL 320 100 ML VIAL IVP ONE (16:32)
[2022-10-18 16:46] VITALS: BP 125/67
== END 2022-10-18 16:45 | disposition home or self-care (01) ==
LOC: ED 12:06
DX: R55 Syncope and collapse (principal); R07.9 Chest pain, unspecified; M54.6 Pain in thoracic spine; Z72.0 Tobacco use
CPT/HCPCS: 36415; 71045; 71275; 72125; 80053; 83690; 84484; 85025; 93005; 96374; 96375; 99284; A9270; Q9967

== ENCOUNTER 2023-12-30 13:05 | Observation (INO) ==
--- NOTE | 2023-12-30 14:06 | ED Physician Documentation ---
History of Present Illness Stated complaint Stated Complaint: ABD PX Chief complaint Chief Complaint: Abd Pain History obtained from History obtained from: Patient Additonal information Additional information: The patient comes to the emergency department chief complaint of upper back pain, left upper quadrant/left lower rib cage pain, nausea, and pain with deep breaths on the left that started about an hour and a half ago. 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 The patient states that the medics gave her some morphine and route and after the gave her the morphine, she began to notice a [place], water like appearance of her vision on the right and then developed a blind spot in her right peripheral vision. She has a history of cluster headaches and possibly migraines, but has never had an ocular migraine. No history of stroke. Patient has a history of anxiety but she is otherwise fairly healthy. She has a history of gallstones previously but has not had her gallbladder removed. She has donated her left kidney. No other complaints at this time. Meds/Allgy Home Medications Ambulatory Orders Medication Instructions Recorded Confirmed carisoprodol 350 mg tablet (Soma) 350 mg PO Q8HR PRN Spasms #15 tabs 10/18/22 hydrocodone 5 mg-acetaminophen 325 1 - 2 tab PO Q6H PRN Pain #7 tabs 10/18/22 mg tablet lidocaine 5 % topical patch 1 patch topical DAILY PRN pain #10 10/18/22 patches Allergies Allergies Allergy/AdvReac Type Severity Reaction Status Date / Time bee venom protein (honey bee) Allergy Unknown Verified 12/30/23 13:08 hydromorphone (From Dilaudid) Allergy Hives Verified 12/30/23 13:08 latex Allergy Unknown Verified 10/18/22 12:11 iv contrast Allergy Unknown Uncoded 10/18/22 12:11 PFSH Social History Social History Smoking Status: Light tobacco smoker Relationship: Do you feel safe in your home environment?: Yes Suffered physical, verbal, emotional, or financial abuse?: No History of Abuse: No Frequency: Occasional POLST Patient has POLST: No Exam Constitutional normal general appearance The patient appears uncomfortable, clutching her left upper quadrant and writhing around. HENMT normocephalic, head/scalp atraumatic, external nose normal and oral mucous membranes normal Eyes EOMs intact bilaterally Neck/C-Spine visual inspection normal and supple Respiratory breath sounds equal bilaterally, normal respiratory effort and clear to auscultation bilaterally Cardiovascular normal heart rate noted, regular rhythm noted and no edema Gastrointestinal abdomen normal to inspection, abdomen soft to palpation and nondistended Tenderness to palpation at the border between the left upper abdomen and the left inferior costal margin. Genitourinary no CVA tenderness Extremities normal to inspection Neurology Alert, grossly intact Psychiatry mental status grossly normal Skin skin color normal Results Vitals Vitals: Vital Signs - 24 hr 12/30/23 13:08 12/30/23 13:39 12/30/23 14:20 Temperature 36.8 C Temperature Source Tympanic Pulse Rate 64 60 Respiratory Rate 18 16 Blood Pressure 150/90 H 130/42 L O2 Saturation 97 97 O2 Source Room air Room air Pain Intensity 7 9 8 12/30/23 14:20 12/30/23 15:12 Temperature Temperature Source Pulse Rate 64 Respiratory Rate 19 Blood Pressure 127/67 O2 Saturation 96 O2 Source Room air Pain Intensity 8 7 Oxygen O2 Source Room air Labs Labs: Laboratory Tests 12/30/23 12/30/23 13:50 14:20 WBC 5.3 RBC 4.13 L Hgb 12.6 Hct 38.1 MCV 92.3 MCH 30.5 MCHC 33.1 RDW 12.6 Plt Count 222 MPV 10.6 Neut # (Auto) 2.9 Lymph # (Auto) 1.7 Rankin # (Auto) 0.3 Eos # (Auto) 0.3 Baso # (Auto) 0.0 Absolute Nucleated RBC 0.00 Nucleated RBC % 0.0 PT 11.6 INR 1.0 Sodium 141 Potassium 3.8 Chloride 106 Carbon Dioxide 26 Anion Gap 9.0 BUN 17 Creatinine 1.0 Estimated GFR (MDRD) 58 L Glucose 89 Calcium 9.8 Total Bilirubin 0.4 AST 16 ALT 10 Alkaline Phosphatase 73 Total Protein 6.9 Albumin 4.6 Globulin 2.3 Albumin/Globulin Ratio 2.0 Lipase 41 Urine Color YELLOW Urine Clarity CLEAR Urine pH 6.0 Ur Specific [place] 1.010 Urine Protein NEGATIVE Urine Glucose (UA) NEGATIVE Urine Ketones NEGATIVE Urine Occult Blood NEGATIVE Urine Nitrite NEGATIVE Urine Bilirubin NEGATIVE Urine Urobilinogen 0.2 (NORMAL) Ur Leukocyte Esterase NEGATIVE Ur Microscopic Review NOT INDICATED Urine Culture Comments NOT INDICATED Rads (name of study) Left wrist x-ray series: Relevant Findings:: Final report received and See rad report (Negative) Left knee x-ray series: Relevant Findings:: Discussed with rads and See rad report (Negative) PD Medical Decision Making ED course Complexity details: reviewed old records, reviewed results, re-evaluated patient, considered differential and d/w patient ED course: The patient seemed to be in a lot of pain and I was somewhat concerned regarding the upper back pain and abdominal pain that seemed sudden and severe. The patient had normal vital signs and seemed otherwise stable but was visibly uncomfortable. The patient also had the sense of wavering in her vision and then a lateral blind spot. I did consider an ocular migraine but felt the patient should out of an abundance of caution have imaging of her brain. I ordered symptomatic treatment for her in the form of an IV fluid bolus as well as morphine, Phenergan, and Toradol. Prior to receiving the medications ordered, the patient requested to go to the bathroom and got up to walk there. While in the bathroom, she had a syncopal episode and fell, hitting her head and also her left knee and wrist. She was only unconscious for a matter of seconds, but I was concerned about the pain and now the syncopal episode, and decided to obtain CT angiogram of the chest and abdomen, in addition to a CT of the head. These are pending at this time. The patient had full range of motion of both complained of quite a bit of pain and so x-rays were performed of both sites. These were found to be negative. The patient still received the medications ordered, though I did instruct nursing staff not to have her get up unattended or walk anywhere. The patient reported feeling much better after the meds and her vital signs remained normal. At this point in time, her laboratory studies have returned, And overall are unremarkable. She has normal white blood cell counts and hemoglobin, and her urinalysis is negative. Her ER abdominal panel is unremarkable. At this point in time, the patient is signed out to Dr. Shaffer at change of shift, pending her imaging studies. She is also pending final disposition. Discharge Plan Discharge Prescriptions: No Action hydrocodone-acetaminophen 1 TAB tablet 1 - 2 tab PO Q6H PRN (Reason: Pain) Qty: 7 0RF lidocaine 1 PATCH adhesive patch,medicated 1 patch topical DAILY PRN (Reason: pain) Qty: 10 0RF Rx Instructions: apply to affected area for 12 hours and then off for 12 hours. carisoprodol [Soma] 350 MG tablet 350 mg PO Q8HR PRN (Reason: Spasms) Qty: 15 0RF Print Language: Persian Stand Alone Forms: PCP List
[2023-12-30 14:09] LABS: BASOPHILS % (AUTO) 0.8 %; EOSINOPHILS # (AUTO) 0.3 10^3/uL (0.0-0.7); EOSINOPHILS % (AUTO) 5.9 %; HCT - HEMATOCRIT 38.1 % (37.0-47.0); HGB - HEMOGLOBIN 12.6 g/dL (12.0-16.0); LYMPHOCYTES # (AUTO) 1.7 10^3/uL (1.5-3.5); LYMPHOCYTES % (AUTO) 31.2 %; MEAN CORPUSCULAR HEMOGLOBIN 30.5 pg (27.0-31.0); MEAN CORPUSCULAR HGB CONC 33.1 g/dL (32.0-36.0); MEAN CORPUSCULAR VOLUME 92.3 fL (81.0-99.0); MEAN PLATELET VOLUME 10.6 fL (7.9-10.8); MONOCYTES # (AUTO) 0.3 10^3/uL (0.0-1.0); MONOCYTES % (AUTO) 6.4 %; NEUTROPHILS # (AUTO) 2.9 10^3/uL (1.5-6.6); NEUTROPHILS % (AUTO) 55.5 %; PLT - PLATELET COUNT 222 10^3/uL (130-450); RED BLOOD COUNT 4.13 10^6/uL (4.20-5.40); RED CELL DISTRIBUTION WIDTH 12.6 % (12.0-15.0); WHITE BLOOD COUNT 5.3 x10^3/uL (4.8-10.8)
[2023-12-30] MEDS ORDERED: PROMETHAZINE 25 MG/1 ML VIAL ONE (14:15)
[2023-12-30] MEDS: SODIUM CHLORIDE 0.9% 1,000 ML IV STA (14:19)
[2023-12-30] MEDS: KETOROLAC 30 MG/ML VIAL IVP STA (14:20)
[2023-12-30] MEDS ORDERED: iohexoL-300 100 ML VIAL ONE (14:20)
[2023-12-30] MEDS: DEXAMETHASONE 10 MG/ML VIAL IVP STA (14:20)
[2023-12-30] MEDS: MORPHINE 10 MG/ML VIAL IVP STA (14:20)
[2023-12-30 14:21] LABS: PT - PROTHROMBIN TIME 11.6 secs (9.9-12.6)
[2023-12-30] MEDS ORDERED: iohexoL-300 150 ML BOTTLE ONE (14:21)
[2023-12-30 14:24] LABS: ALBUMIN 4.6 g/dL (3.2-5.5); BILIRUBIN,TOTAL 0.4 mg/dL (0.2-1.0); CALCIUM 9.8 mg/dL (8.5-10.3); POTASSIUM 3.8 mmol/L (3.5-4.5); TOTAL PROTEIN 6.9 g/dL (6.4-8.9)
[2023-12-30] MEDS: PROMETHAZINE INJ 12.5 MG in SODIUM CHLORIDE 0.9% 50 ML IV STA (14:28)
[2023-12-30 14:33] LABS: BILIRUBIN,URINE NEGATIVE (NEGATIVE); GLUCOSE, URINE (UA) NEGATIVE (NEGATIVE); KETONES,URINE (UA) NEGATIVE (NEGATIVE); LEUKOCYTE ESTERASE, URINE NEGATIVE (NEGATIVE); NITRITE,URINE NEGATIVE (NEGATIVE); OCCULT BLOOD,URINE NEGATIVE (NEGATIVE); PROTEIN,URINE NEGATIVE (NEGATIVE); UROBILINOGEN,URINE 0.2 (NORMAL) E.U./dL (NORMAL)
[2023-12-30 14:34] LABS: CLARITY,URINE CLEAR (CLEAR)
[2023-12-30] MEDS: diphenhydrAMINE INJ 50 MG/ML VIAL IVP STA (15:13)
--- NOTE | 2023-12-30 15:22 | XRAY Report ---
PROCEDURE: XR Wrist 3+V LT INDICATIONS: fall/injury TECHNIQUE: 3 views of the wrist were acquired. COMPARISON: None. FINDINGS: No acute fracture or dislocation. Diffuse osseous demineralization. The joint spaces are preserved. IMPRESSION: No acute fracture or dislocation of the left wrist. If there is persistent concern for a fracture, co nsider a follow-up radiographs in 10-14 days. Reviewed by: Jones Knott MD on 12/30/2023 3:20 PM PST Approved by: Jones Knott MD on 12/30/2023 3:20 PM PST Station ID: [id number]
--- NOTE | 2023-12-30 15:24 | XRAY Report ---
PROCEDURE: XR Knee 4+V LT INDICATIONS: fall/injury TECHNIQUE: 4 views of the knee(s) were acquired. COMPARISON: Left knee x-ray 11/03/2018 FINDINGS: Diffuse osseous demineralization. No fracture or dislocation. Minimal tricompartmental osteoarthritis . No significant joint effusion. IMPRESSION: No acute fracture or dislocation of the left knee. Reviewed by: Jones Knott MD on 12/30/2023 3:23 PM PST Approved by: Jones Knott MD on 12/30/2023 3:23 PM PST Station ID: [id number]
[2023-12-30] MEDS: iohexoL-300 150 ML BOTTLE IVP ONE (16:59)
--- NOTE | 2023-12-30 17:02 | CT Report ---
PROCEDURE: CT Head WO INDICATIONS: R eye visual change TECHNIQUE: Noncontrast 4.5 mm thick angled axial sections acquired from the foramen magnum to the vertex. For r adiation dose reduction, the following was used: automated exposure control, adjustment of mA and/or kV according to patient size. COMPARISON: CT head without contrast 11/16/2019 FINDINGS: Image quality: Excellent. CSF spaces: Basal cisterns are patent. No extra-axial fluid collections. Ventricles are normal in size and shape. Brain: No midline shift. No intracranial masses or hemorrhage. [place]-white matter interface is norm al. Skull and face: Calvarium and visualized facial bones are intact, without suspicious lesions. Unfus ed posterior arch of C1 (4/2). Sinuses: Visualized sinuses and mastoids are clear. IMPRESSION: No acute intracranial pathology. Reviewed by: Jones Knott MD on 12/30/2023 5:01 PM PST Approved by: Jones Knott MD on 12/30/2023 5:01 PM PST Station ID: [id number]
--- NOTE | 2023-12-30 17:04 | CT Report ---
PROCEDURE: CT Angio Chest INDICATIONS: chest/back/abd pain, syncope, ?aortic pathology? CONTRAST: 125ml [id number]. TECHNIQUE: After the administration of intravenous contrast, 2 mm axial images were acquired from the pulmonary apices to the posterior costophrenic angles during the arterial phase. In addition, 1 mm lung kernel and 5 mm soft tissue kernel reconstructions were performed. 3-dimensional coronal oblique maximum int ensity projection (MIP) reformats, 8 mm axial MIP, and 5 mm coronal and sagittal MPR reformats were t hen performed through the thorax. For radiation dose reduction, the following was used: automated exp osure control, adjustment of mA and/or kV according to patient size. COMPARISON: None. FINDINGS: Image quality: Excellent. Large vessels: No filling defects within the opacified pulmonary arteries, accounting for motion and contrast timing. No evidence of acute aortic syndrome or aortic aneurysm. Lungs and pleura: No consolidation. No pleural effusions. No pneumothorax. No suspicious pulmonary n odules which require follow up. Mosaic attenuation of the lungs. Mediastinum: Heart size is enlarged. No pericardial effusion. No large vessel abnormality. No mediast inal adenopathy by size criteria. Chest wall and lower neck: Thyroid is unremarkable. No axillary or supraclavicular adenopathy by size . Bones: No aggressive osseous abnormality. Upper Abdomen: Separately dictated. IMPRESSION: No pulmonary embolus. No aortic pathology. Mosaic attenuation of the lungs, suggestive of diffuse air trapping in the setting of small airways d isease. Reviewed by: Meliton Espinosa MD on 12/30/2023 5:03 PM PST Approved by: Meliton Espinosa MD on 12/30/2023 5:03 PM PST Station ID: [id number]
--- NOTE | 2023-12-30 17:06 | CT Report ---
PROCEDURE: CT Angio Abdomen Runoff BL INDICATIONS: abd/chest/back pain, ?aortic path? CONTRAST: 125ml [id number]. TECHNIQUE: After the administration of intravenous contrast, a CT scan of the abdomen, pelvis and lower extremit ies (to the feet) was performed. Images were recorded and evaluated at appropriate window settings. R eformats: coronal and sagittal. For radiation dose reduction, the following was used: automated expos ure control, adjustment of mA and/or kV according to patient size. COMPARISON: None. FINDINGS: Image quality: Excellent. Abdominal aorta: No evidence of acute aortic syndrome. No significant aneurysm. No significant ather osclerotic disease. Right lower extremity: Common iliac artery: No significant atherosclerotic disease. External iliac artery: No significant atherosclerotic disease. Common femoral artery: No significant atherosclerotic disease. Superficial femoral artery: No significant atherosclerotic disease. Popliteal artery: No significant atherosclerotic disease. Anterior tibial artery: No significant atherosclerotic disease. Peroneal artery: No significant atherosclerotic disease. Posterior tibial artery: No significant atherosclerotic disease. Left lower extremity: Right lower extremity: Common iliac artery: No significant atherosclerotic disease. External iliac artery: No significant atherosclerotic disease. Common femoral artery: No significant atherosclerotic disease. Superficial femoral artery: No significant atherosclerotic disease. Popliteal artery: No significant atherosclerotic disease. Anterior tibial artery: No significant atherosclerotic disease. Peroneal artery: No significant atherosclerotic disease. Posterior tibial artery: No significant atherosclerotic disease. OTHER: Lung bases and heart: Unremarkable. Liver: No solid mass. Gallbladder and biliary tree: Cholelithiasis without wall thickening. No biliary dilation. Spleen: No splenomegaly. Pancreas: No pancreatic ductal dilation. Adrenals: No adrenal nodule. Kidneys and ureters: No hydronephrosis. No renal cystic lesion which requires follow up. No solid mas s. Left nephrectomy. Bowel and peritoneum: No bowel distension. No pathologic free fluid. Lymph nodes: No central or retroperitoneal adenopathy. Vessels: No infrarenal aortic aneurysm. Reproductive organs: Unremarkable. Bladder: No abnormal wall thickening, accounting for underdistention. Pelvic lymph nodes: No pelvic adenopathy by size criteria. Bones: No aggressive osseous abnormality. Other: No significant ventral or inguinal hernia. IMPRESSION: No aortic pathology. No significant atherosclerotic disease. Cholelithiasis. Correlate with right upper quadrant pain. If positive, consider sonographic evaluatio n. Reviewed by: Meliton Espinosa MD on 12/30/2023 5:05 PM PST Approved by: Meliton Espinosa MD on 12/30/2023 5:05 PM PST Station ID: [id number]
[2023-12-30] MEDS: MAG HYDROX/AL HYDROX/SIMETH 30 ML UDC PO STA (17:58)
[2023-12-30] MEDS: SUCRALFATE 1 GM/10 ML UDC PO STA (17:58)
[2023-12-30] MEDS: FAMOTIDINE 20 MG TABLET PO STA (17:59)
[2023-12-30] MEDS: SUMAtriptan 6 MG/0.5 ML VIAL SUBQ STA (17:59)
[2023-12-30] MEDS: NALBUPHINE 10 MG/ML AMP IVP STA (19:44)
[2023-12-30] MEDS: LORazepam 2 MG/ML VIAL IVP STA (19:44)
--- NOTE | 2023-12-30 20:40 | ED Physician Documentation ---
ED Addendum Addendum Addendum: Patient was signed out to me by Dr. Jones, please see her note for full H&P on this patient. Briefly she has left upper quadrant pain, midthoracic back pain and right eye vision distortion. Also has a right sided headache. History of cluster headaches in the past. She states that she has had similar pain with no cause found. She received morphine, Zofran, Toradol, Benadryl, Nubain, Ativan. Received Imitrex. She states that she still has an intractable headache. She also still complains of the right eye vision loss. The back pain is mostly with movement, suspect musculoskeletal for this. Right upper quadrant ultrasound was done to exclude any biliary disease, does have a gallstone but no cholecystitis. She is not tender in the right upper quadrant. CT of the head did not show any acute abnormalities. CT of the chest, abdomen and pelvis did not show any acute abnormalities either. Unclear etiology of her symptoms, will place in observation for intractable headache with neurological deficit of the right eye and MRI in the morning. Patient has a normal funduscopic exam. She can see motion in the periphery of the right eye after medications, this is improved, from what she was complaining of initially. She never lost complete vision in the eye, only the right eye lateral peripheral vision. Pupils are equal round reactive to light. Suspect complex migraine. Discussed the case with the hospitalist. Dr. Malik, hospitalist requested that I speak with neurology regarding potential transfer. Spoke with [facility] neurology, Dr. Francis. He recommends a CT angiogram of head and neck in the morning after IV hydration. Also recommends MRI of the brain without contrast. He states if she still has a headache could consider magnesium and Depakote 1 g. Does not feel that she needs emergent transfer tonight. We will recontact the hospitalist. Of note the patient does only have 1 kidney, she donated the other kidney approximately 4 to 5 years ago. Therefore we will hydrate her overnight to help protect her kidney from the contrast. [facility] states that she had a delayed reaction, approximately 48 hours later to gadolinium, they do not feel this was a reaction to the gadolinium however. Rediscussed the case with the hospitalist who accepts. Patient will be placed observation overnight. This document was made in part using voice recognition software. While efforts are made to proofread this document, sound alike and grammatical errors may occur. Discharge Plan Discharge Patient Disposition: ED Place in Observation Condition: Stable Clinical Impression: Sudden visual loss of right eye Back pain Qualifiers: Back pain location: back pain in unspecified location Chronicity: acute Back pain laterality: midline Qualified Code(s): M54.9 - Dorsalgia, unspecified Intractable migraine Qualifiers: Migraine type: unspecified Status migrainosus presence: with status migrainosus Qualified Code(s): G43.911 - Migraine, unspecified, intractable, with status migrainosus Interventions: ED Admission Assessment Last Done: 12/30/23 22:18
--- NOTE | 2023-12-30 20:45 | Ultrasound Report ---
PROCEDURE: US Abdomen Limited INDICATIONS: RUQ pain TECHNIQUE: Real-time focused scanning was performed of the abdomen, with image documentation. COMPARISONS: CTA 12/30/2023. FINDINGS: Liver: Liver is normal in size and diffuse increased echogenicity. Gallbladder: Gallstones are present. No gallbladder wall thickening or pericholecystic fluid. Sonogra phic Toribio sign is negative. Biliary ducts: Intrahepatic bile ducts are non-dilated. Extrahepatic bile duct caliber measures 4.4 mm. Normal is 6-7 mm or less in diameter, or 10 mm or less post-cholecystectomy. Pancreas: Visualized portions of the pancreas are sonographically normal. Right kidney: Normal in size and echotexture. Right kidney measures 12.1 cm long. No hydronephrosis or nephrolithiasis. No solid masses. No complex renal cystic lesions which require follow-up. IVC: Intrahepatic inferior vena cava is patent. Miscellaneous: No free abdominal fluid. IMPRESSION: 1.Cholelithiasis without sonographic signs of acute cholecystitis. 2.Diffusely increased hepatic echogenicity is nonspecific, but most commonly encountered in the setti ng of hepatic steatosis. However, other causes of hepatocellular disease are not excluded. Recommend clinical correlation. Reviewed by: Riaz Gonzalez MD on 12/30/2023 8:43 PM PST Approved by: Riaz Gonzalez MD on 12/30/2023 8:43 PM PST Station ID: [id number]
[2023-12-30] MEDS: ASPIRIN CHEW 81 MG TABLET PO STA (21:39)
[2023-12-30] MEDS ORDERED: SODIUM CHLORIDE FLUSH 0.9% 10 ML SYRINGE IVP PRN (21:59)
--- NOTE | 2023-12-30 22:30 | HISTORY & PHYSICAL EXAMINATION ---
Chief Complaint Chief Complaint Chief Complaint: chest pain and syncope History of Present Illness Admitted From Admitted From:: Home History Obtained From Records Reviewed: Yes History obtained from: ER team and Patient Exam Limitations: Telemedicine History of Present Illness HPI Comment/Other: "The patient comes to the emergency department chief complaint of upper back pain, left upper quadrant/left lower rib cage pain, nausea, and pain with deep breaths on the left that started about an hour and a half ago. 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 The patient states that the medics gave her some morphine and route and after the gave her the morphine, she began to notice a [place], water like appearance of her vision on the right and then developed a blind spot in her right peripheral vision. She has a history of cluster headaches and possibly migraines, but has never had an ocular migraine. No history of stroke. Patient has a history of anxiety but she is otherwise fairly healthy. She has a history of gallstones previously but has not had her gallbladder removed. She has donated her left kidney. No other complaints at this time." Patient was signed out to oncoming ER MD as above, I had a nice talk with Dr Von Mcbride we discussed various concerns, he did call higher level of care, Neurology who recommended ok to admit patient with plans for CTA of neck and head and MRI in am if symptoms not resolved, it seems slightly rare for this to be migraine induced vision loss, but this was the working diagnosis from ER. Patient seen and examined, patient informed that I am based in [place], she gives verbal consent for telemedicine. Clinically she is frustrated not knowing what is going on, continues to have right eye visual disturbance, no other focal or sensory deficits. also had syncope x 3 in past, currently in [facility] on telemetry, father has A fib, Mothers family hx of Multiple sclerosis, no fever no chills no other active complaints. Review of Systems 14 sytem review done and as per HPI [facility] Social History Social History Smoking Status: Light tobacco smoker Relationship: Do you feel safe in your home environment?: Yes Suffered physical, verbal, emotional, or financial abuse?: No History of Abuse: No Frequency: Occasional POLST Patient has POLST: No Meds/Allgy Home Medications Ambulatory Orders Medication Instructions Recorded Confirmed carisoprodol 350 mg tablet (Soma) 350 mg PO Q8HR PRN Spasms #15 tabs 10/18/22 hydrocodone 5 mg-acetaminophen 325 1 - 2 tab PO Q6H PRN Pain #7 tabs 10/18/22 mg tablet lidocaine 5 % topical patch 1 patch topical DAILY PRN pain #10 10/18/22 patches Allergies Allergies Allergy/AdvReac Type Severity Reaction Status Date / Time bee venom protein (honey bee) Allergy Unknown Verified 12/30/23 22:01 hydromorphone (From Dilaudid) Allergy Hives Verified 12/30/23 22:01 latex Allergy Unknown Verified 12/30/23 22:01 iv contrast Allergy Unknown Uncoded 12/30/23 22:01 Prior Level of Functionality: Independent with ADL Exam Constitutional normal general appearance and no apparent distress The patient appears uncomfortable, clutching her left upper quadrant and writhing around. HENMT normocephalic, head/scalp atraumatic, external nose normal and oral mucous membranes normal Eyes EOMs intact bilaterally Right eye unable to see well Neck/C-Spine visual inspection normal and supple Respiratory breath sounds equal bilaterally, normal respiratory effort and clear to auscultation bilaterally Cardiovascular normal heart rate noted, regular rhythm noted and no edema Gastrointestinal abdomen normal to inspection, abdomen soft to palpation, nontender to palpation and nondistended Tenderness to palpation at the border between the left upper abdomen and the left inferior costal margin. Genitourinary no CVA tenderness Extremities normal to inspection Neurology Alert, grossly intact Psychiatry mental status grossly normal Skin skin color normal Sepsis Event Note (H) Evaluation Current Stage of Sepsis: Ruled out Conclusion/Plan Problem List (1) Sudden visual loss of right eye: Plan: Admit to telemetry Check Echo in am if symptoms persists. Migraine causing visual loss is not common IF symptoms persist consider CTA Neck and Head with contrast Since patient is a renal donor and has only one Kidney will start with gentle hydration Check MRI head with out contrast May need cafeteria monitor to rule out any arrhythmias causing her to pass out May need LP for concerns for Multiple sclerosis as Mother side has strong history She got ASA in ER Have givenher statin We thought about possible TIA but again nor common with only visual disturbance and no other complaints SCD Continue close monitoring Neurochecks PRN if any symptoms, she is very tired and requesting if she can sleep without disturbance No other concerns at this time Full code. (2) Intractable migraine: Plan: As above Imitrex can be tried Qualifiers: Migraine type: unspecified Status migrainosus presence: with status migrainosus Qualified Code(s): G43.911 - Migraine, unspecified, intractable, with status migrainosus (3) Back pain: Plan: Tyelnol prn further work up as outpatient Qualifiers: Back pain laterality: midline Back pain location: back pain in unspecified location Chronicity: acute Qualified Code(s): M54.9 - Dorsalgia, unspecified Plan as Above Lab Results Lab results reviewed: Yes 12/30/23 13:50 12/30/23 13:50 Diagnostic Imaging Results Diagnostic Imaging Results: positive Prelim report reviewed Telemedicine Consult Details Provider Location & Consult Time Telemedicine consultation conducted via videoconferencing?: Yes List names and roles of persons who participated in consult:: Patient and me Telemedicine provider location:: [place] Time Telemedicine consult began:: 21:29 Time Telemedicine consult completed:: 22:29
[2023-12-30] MEDS: SODIUM CHLORIDE 0.9% 1,000 ML IV SCH (22:47)
[2023-12-30] MEDS: ATORVASTATIN 40 MG TABLET PO STA (22:47)
[2023-12-31] MEDS: ACETAMINOPHEN 325 MG TABLET PO PRN (00:13)
[2023-12-31] MEDS: SODIUM CHLORIDE FLUSH 0.9% 10 ML SYRINGE IVP SCH (00:15)
[2023-12-31] MEDS: HYDROcod/ACETAM 10 MG/325 MG TABLET PO PRN (04:00)
[2023-12-31] MEDS: diphenhydrAMINE 25 MG CAPSULE PO PRN (05:08)
[2023-12-31] MEDS ORDERED: iohexoL-300 100 ML VIAL ONE (08:32)
--- NOTE | 2023-12-31 09:02 | PROVIDER PROGRESS NOTE ---
Subjective Prog Note Date Prog Note Date: 12/31/23 Prog Note Time: 08:58 Subjective Pt reports feeling: No change Subjective: She continues with a headache 8 out of 10 this morning. She states her headache started when she was in the ED. The initial onset of symptoms was pain in her upper back that was quite sudden in onset felt like someone had kicked her in the upper back accompanied by drenching sweat and immediate onset of fatigue. She did not start having the visual changes until she was in the emergency department. She describes these visual changes in her right eye as like looking through a scuba mask that has water dripping down it. It was around this time that she developed difficulty with her right peripheral visual field. She has a history of long COVID, COVID infection in November 2018. This was after having donated her kidney in February 2018. She states she has a family history of Kacey-Danlos syndrome in her mother and her brother her mother is living at the age of 75 her brother is living at the age of 42. She has she states history of questionable POTS. She states but not the kind with tachycardia. She has had a dry cough since her COVID. She states she has occasional nosebleeds that are very difficult to stop. 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 She does not consume caffeine. She does consume CBD Gummies she states she only smokes when she drinks alcohol which is quite rare. I have seen this patient several times over the course of the day. She continues to complain of headache and right visual field loss. She is requested to go home and when I am ready to send her home she requests to stay. As the day has gone on she has had 1 episode of elevated heart rate up to the 200s when she went to go to the bathroom this was accompanied with palpitations. Current Medications Current Medications Current Medications: Current Medications Generic Name Dose Route Start Last Admin Trade Name Freq PRN Reason Stop Dose Admin Acetaminophen 650 mg 12/30/23 21:59 12/31/23 00:13 Acetaminophen 325 Mg Tablet PO 650 mg Q4HR PRN Administration Pain 1 to 4, or Fever Hydrocodone Bitart/Acetaminophen 1 tab 12/31/23 03:42 12/31/23 04:00 Hydrocod/Acetam 10 Mg/325 Mg Tablet PO 1 tab Q6HR PRN Administration Severe Pain (Level 7-10) Diphenhydramine HCl 25 mg 12/31/23 03:46 12/31/23 05:08 Diphenhydramine 25 Mg Capsule PO 25 mg Q4HR PRN Administration Allergy Symptoms Ondansetron HCl 4 mg 12/30/23 21:59 Ondansetron 4 Mg/2 Ml Vial IVP Q6HR PRN Nausea / Vomiting Sodium Chloride 10 ml 12/30/23 21:59 Sodium Chloride Flush 0.9% 10 Ml Syringe IVP PRN PRN NEEDED PER PROVIDER ORDERS Sodium Chloride 10 ml 12/31/23 01:00 12/31/23 00:15 Sodium Chloride Flush 0.9% 10 Ml Syringe IVP Not Given 0100,0900,1700 YANNICK Objective Vital Signs/Intake & Output Vital Signs: Vital Signs x48h Temp Pulse Resp BP Pulse Ox 12/31/23 08:00 36.3 C L 57 L 16 120/61 96 12/31/23 05:10 36.6 C 50 L 18 110/64 96 Intake & Output: Intake & Output 12/29/23 12/30/23 12/31/23 01/01/24 05:59 05:59 05:59 05:59 Intake Total 1150.5 / 1150.5 Balance 1150.5 / 1150.5 Weight (kg) 97.7 kg Objective General Appearance: positive No acute distress and Alert Eyes Bilateral: positive Normal inspection, PERRL, Conjunctivae nml and Other (Severe photophobia) ENT: positive ENT inspection nml Neck: positive Nml inspection Respiratory: positive Chest non-tender, No respiratory distress and Wheezes (Occasional wheeze) Cardiovascular: positive Regular rate & rhythm Abdomen: positive Non-tender and No distention Skin: positive Color nml Extremities: positive Non-tender and No pedal edema Neurologic/Psychiatric: positive Oriented x3 Lab Results 12/31/23 13:20 12/31/23 13:20 Other Labs: Lab Results x24hrs 12/30/23 12/30/23 Range/Units 14:20 13:50 WBC 5.3 (4.8-10.8) x10^3/uL RBC 4.13 L (4.20-5.40) 10^6/uL Hgb 12.6 (12.0-16.0) g/dL Hct 38.1 (37.0-47.0) % MCV 92.3 (81.0-99.0) fL MCH 30.5 (27.0-31.0) pg MCHC 33.1 (32.0-36.0) g/dL RDW 12.6 (12.0-15.0) % Plt Count 222 (130-450) 10^3/uL MPV 10.6 (7.9-10.8) fL Neut # (Auto) 2.9 (1.5-6.6) 10^3/uL Lymph # (Auto) 1.7 (1.5-3.5) 10^3/uL [place] # (Auto) 0.3 (0.0-1.0) 10^3/uL Eos # (Auto) 0.3 (0.0-0.7) 10^3/uL Baso # (Auto) 0.0 (0.0-0.1) 10^3/uL Absolute Nucleated RBC 0.00 x10^3/uL Nucleated RBC % 0.0 /100WBC PT 11.6 (9.9-12.6) secs INR 1.0 (0.8-1.2) Sodium 141 (135-145) mmol/L Potassium 3.8 (3.5-4.5) mmol/L Chloride 106 (101-111) mmol/L Carbon Dioxide 26 (21-32) mmol/L Anion Gap 9.0 (6-13) BUN 17 (6-20) mg/dL Creatinine 1.0 (0.6-1.3) mg/dL Estimated GFR (MDRD) 58 L (>89) Glucose 89 (74-104) mg/dL Calcium 9.8 (8.5-10.3) mg/dL Total Bilirubin 0.4 (0.2-1.0) mg/dL AST 16 (10-42) IU/L ALT 10 (10-60) IU/L Alkaline Phosphatase 73 (42-121) IU/L Total Protein 6.9 (6.4-8.9) g/dL Albumin 4.6 (3.2-5.5) g/dL Globulin 2.3 (2.1-4.2) g/dL Albumin/Globulin Ratio 2.0 (1.0-2.2) Lipase 41 (11-82) U/L Urine Color YELLOW Urine Clarity CLEAR (CLEAR) Urine pH 6.0 (5.0-7.5) PH Ur Specific Lind 1.010 (1.002-1.030) Urine Protein NEGATIVE (NEGATIVE) mg/dL Urine Glucose (UA) NEGATIVE (NEGATIVE) mg/dL Urine Ketones NEGATIVE (NEGATIVE) mg/dL Urine Occult Blood NEGATIVE (NEGATIVE) Urine Nitrite NEGATIVE (NEGATIVE) Urine Bilirubin NEGATIVE (NEGATIVE) Urine Urobilinogen 0.2 (NORMAL) (NORMAL) E.U./dL Ur Leukocyte Esterase NEGATIVE (NEGATIVE) Ur Microscopic Review NOT INDICATED Urine Culture Comments NOT INDICATED Sepsis Event Note (H) Evaluation Current Stage of Sepsis: Ruled out Assessment/Plan Problem List (1) Intractable migraine: Impression: Persistent migraine headache. She has been treated with pain medication and sumatriptan. She has had imaging to include head CT which was negative. Brain MRI which was negative. Brain MRA which is negative. Neck MRA which was negative. She complains of persistent right visual field loss. She has had extensive laboratory and imaging workup. She does not have any electrolyte abnormalities. She does not have any significant anemia. She does not have coagulopathy. Her renal function is normal. Qualifiers: Migraine type: unspecified Status migrainosus presence: with status migrainosus Qualified Code(s): G43.911 - Migraine, unspecified, intractable, with status migrainosus (2) Sudden visual loss of right eye: Impression: As above. All imaging is negative. (3) Back pain: Impression: Presented to the ED with back pain. This is mostly resolved. Workup was negative. She had a chest/thorax CTA. She had CTA of the abdomen pelvis with runoff which was negative. She had a right upper quadrant ultrasound which was negative. Qualifiers: Back pain laterality: midline Back pain location: back pain in unspecified location Chronicity: acute Qualified Code(s): M54.9 - Dorsalgia, unspecified (4) Tachycardia: Impression: She has had 1 episode of tachycardia with palpitations. This 1 was when she was getting up to go to the bathroom. Otherwise the remainder of her workup has been negative. I will continue telemetry overnight and plan on discharge in the morning assuming we do not see any major cardiac arrhythmia. (5) Cough: Impression: Patient complains of a cough for many many years since COVID. She states that she has had long COVID for years. She persistently coughs. There is evidence on her CTA of changes consistent with asthma. I have recommended that she follow-up with a primary care provider. Additionally I have sent albuterol prescription for discharge. She has also been on cough suppressant while she is here, Ginny Greenwood. I have spent 65 minutes in the care of this patient today. This includes time [id number], review and ordering of diagnostic imaging and laboratory studies.. Monitoring the patient's signs symptoms, evaluation of telemetry strips, evaluation of medication effectiveness and patient's response to treatment.
[2023-12-31] MEDS: BENZONATATE 100 MG CAPSULE PO PRN ×2 (09:37→14:38)
--- NOTE | 2023-12-31 10:31 | PHARMACY PROGRESS NOTE ---
Best Possible Medication History Admit Date and Time: 12/30/23 2159 Home Medications Medication Instructions Recorded Confirmed Type No Known Home Medications 12/31/23 12/31/23 History Processed by: Pharmacy (Medication Reconciliation completed by Maint MechanicJose) Medications reviewed in ED?: No Medication History completed: Yes Patient Interview: Completed Secondary Source(s): Insurance records [facility] Statement: As the person ultimately responsible for medication therapy, providers are able to order a medication from an existing home medication list in [facility] via the "Reconcile Routine" prior to Confirmation of that medication by windows desktop support. Such practice is discouraged except when the physician, in their clinical judgment, deems that a medical need exists for a medication without regard to previous use.
[2023-12-31] MEDS ORDERED: GADOTERATE MEGLUMINE 10 MMOL/20 ML VIAL ONE (10:59)
[2023-12-31] MEDS: ONDANSETRON 4 MG/2 ML VIAL IVP PRN (13:02)
[2023-12-31 13:31] LABS: BASOPHILS % (AUTO) 0.2 %; EOSINOPHILS # (AUTO) 0.1 10^3/uL (0.0-0.7); EOSINOPHILS % (AUTO) 0.6 %; HCT - HEMATOCRIT 37.1 % (37.0-47.0); HGB - HEMOGLOBIN 11.7 g/dL (12.0-16.0); LYMPHOCYTES # (AUTO) 1.6 10^3/uL (1.5-3.5); LYMPHOCYTES % (AUTO) 18.2 %; MEAN CORPUSCULAR HEMOGLOBIN 29.7 pg (27.0-31.0); MEAN CORPUSCULAR HGB CONC 31.5 g/dL (32.0-36.0); MEAN CORPUSCULAR VOLUME 94.2 fL (81.0-99.0); MEAN PLATELET VOLUME 10.9 fL (7.9-10.8); MONOCYTES # (AUTO) 0.6 10^3/uL (0.0-1.0); MONOCYTES % (AUTO) 7.1 %; NEUTROPHILS # (AUTO) 6.7 10^3/uL (1.5-6.6); NEUTROPHILS % (AUTO) 73.6 %; PLT - PLATELET COUNT 214 10^3/uL (130-450); RED BLOOD COUNT 3.94 10^6/uL (4.20-5.40); RED CELL DISTRIBUTION WIDTH 12.8 % (12.0-15.0)
[2023-12-31 14:00] LABS: THYROID STIMULATING HORMONE 1.45 uIU/mL (0.34-5.60)
[2023-12-31 14:04] LABS: CALCIUM 9.1 mg/dL (8.5-10.3); CREATININE 1.2 mg/dL (0.6-1.3); MAGNESIUM 1.9 mg/dL (1.7-2.3); POTASSIUM 3.7 mmol/L (3.5-4.5)
[2023-12-31] MEDS: oxyCODONE 5 MG TABLET PO PRN (14:37)
[2023-12-31] MEDS: SUMAtriptan 25 MG TABLET PO PRN (15:06)
[2023-12-31] MEDS: GADOTERATE MEGLUMINE 10 MMOL/20 ML VIAL IVP ONE (16:23)
--- NOTE | 2023-12-31 17:39 | MRI Report ---
PROCEDURE: MRI Angio Head WO INDICATIONS: headache TECHNIQUE: [id number] 3-D MR angiogram of the brain was obtained without contrast and 3-dimension al maximum intensity projection (MIP) volume rendering was constructed. COMPARISON: None. FINDINGS: Internal carotid arteries: No acute findings. Intracranial ICA are patent with no significant steno sis. No occlusion. No aneurysm. Anterior cerebral arteries: Unremarkable. No significant stenosis. No occlusion. No aneurysm. Middle cerebral arteries: Unremarkable. No significant stenosis. No occlusion. No aneurysm. Posterior cerebral arteries: Unremarkable. No significant stenosis. No occlusion. No aneurysm. Basilar artery: Unremarkable. No significant stenosis. No occlusion. No aneurysm. Vertebral arteries: Unremarkable as visualized. Other: Visualized portions of the brain unremarkable. IMPRESSION: Normal MR angiogram of the brain Reviewed by: Santiago Agosto MD on 12/31/2023 4:37 PM [place] Approved by: Santiago Agosto MD on 12/31/2023 4:37 PM [facility] Station ID: [id number]
--- NOTE | 2023-12-31 17:41 | MRI Report ---
PROCEDURE: MRI Angio Neck W/WO INDICATIONS: headache TECHNIQUE: Coronal dynamic MR angiogram was obtained after intravenous contrast administration. 3-D MIP volume rendering was constructed from subtraction images. COMPARISON: None. FINDINGS: Internal carotid arteries: Unremarkable. No significant stenosis. No dissection or occlusion. Common carotid arteries: Unremarkable. No significant stenosis. No dissection or occlusion. External carotid arteries: Unremarkable. No occlusion. Vertebral arteries: Unremarkable. No significant stenosis. No dissection or occlusion. Aortic Arch and Mediastinum: Partially visualized aortic arch is unremarkable without evidence of ane urysm. Origins of the great vessels are unremarkable. Bilateral subclavian arteries are also unremark able. IMPRESSION: Unremarkable MR angiogram of the carotid and vertebral arteries in the neck Reviewed by: Santiago Agosto MD on 12/31/2023 4:40 PM [place] Approved by: Santiago Agosto MD on 12/31/2023 4:40 PM [place] Station ID: [id number]
--- NOTE | 2023-12-31 17:44 | MRI Report ---
PROCEDURE: MRI Brain W/WO INDICATIONS: intractable headache TECHNIQUE: Multiplanar multisequential MR images of the brain were obtained before and after intrave nous contrast administration. COMPARISON: None. FINDINGS: CSF spaces: Basal cisterns are patent. No extra-axial fluid collections. Ventricles are normal in size and shape. Brain: No midline shift. No intracranial bleeds or masses. No abnormal intracranial enhancement. The brainstem appears normal. Diffusion-weighted images demonstrate no acute infarct. Normal intrav ascular flow voids are present. Skull and face: Calvarial marrow is normal in signal. Orbits appear normal. Sinuses: Sinuses and mastoids appear clear. IMPRESSION: Unremarkable MRI of the brain with and without contrast Reviewed by: Santiago Agosto MD on 12/31/2023 4:42 PM [place] Approved by: Santiago Agosto MD on 12/31/2023 4:42 PM [place] Station ID: [id number]
[2024-01-01 08:55] VITALS: O2SAT 99
--- NOTE | 2024-01-01 13:07 | Discharge Summary ---
Discharge Summary Admit Date: 12/30/23 Discharge Date: 01/01/24 Discharging Provider: Kwasi Almanza NP Primary Care Provider: None Code Status: Attempt Resuscitation DIAGNOSES Admission Diagnoses: Migraine Blurred vision Chest pain Flank pain in kidney donor Discharge Diagnoses with Status of Each Condition: Migraineactive Blurred visionactive Back painchronic Flank painchronic ALLERGIES Allergies Allergy/AdvReac Type Severity Reaction Status Date / Time bee venom protein (honey bee) Allergy Unknown Verified 12/30/23 22:01 hydromorphone (From Dilaudid) Allergy Hives Verified 12/30/23 22:01 Iodinated Contrast Media Allergy Unknown Verified 12/31/23 09:19 latex Allergy Unknown Verified 12/30/23 22:01 MEDICATIONS Ambulatory Orders Medication Instructions Recorded Confirmed albuterol sulfate 90 mcg/actuation 1 inh inhalation QID PRN shortness 12/31/23 aerosol inhaler (Ventolin HFA) of breath or wheezing #8.5 grams albuterol sulfate 90 mcg/actuation 2 puff inhalation QID PRN 12/31/23 aerosol inhaler (Ventolin HFA) shortness of breath or wheezing #8.5 grams benzonatate 100 mg capsule 200 mg (2 x 100 mg) PO TID PRN 12/31/23 Cough #10 caps ondansetron HCl 4 mg tablet 4 mg PO Q8H #20 tabs 12/31/23 oxycodone 5 mg tablet 5 mg PO Q4HR PRN Moderate Pain 12/31/23 (Level 4-6) #10 tabs sumatriptan succinate 100 mg See Rx Instructions PO .COMPLEX #8 12/31/23 tablet (Imitrex) tabs PHYSICAL EXAM AT DISCHARGE General Appearance: positive No acute distress and Alert Eyes Bilateral: positive Normal inspection and PERRL ENT: positive ENT inspection nml Neck: positive Nml inspection Respiratory: positive Chest non-tender Cardiovascular: positive Regular rate & rhythm Peripheral Pulses: positive 2+ Abdomen: positive Non-tender Back: positive Nml inspection and Other (Muscular back pain, tender on palpation) Skin: positive Color nml Extremities: positive Non-tender Neurologic/Psychiatric: positive Oriented x3 LABS 12/31/23 13:20 12/31/23 13:20 DIAGNOSTIC IMAGING Diagnostic Imaging Results: Final report reviewed Diagnostic Imaging Results Comments: X-ray wrist, knee negative. CT head negative. CTA chest with no PE/dissection. Lower extremity angiography negative for acute abnormality. Abdomen ultrasound with gallstones. Brain MRI, brain and neck MRA negative SEPSIS Current Stage of Sepsis: Ruled out FOLLOW UP Follow Up: Not established with PCP. Encouraged to follow-up with new PCP TIME SPENT Time Spent in Discharge (Minutes): 40 Discharge Plan Discharge Patient Disposition: Home, Self Care Condition: Stable Prescriptions: New benzonatate 100 mg Capsule 200 mg PO TID PRN (Reason: Cough) Qty: 10 0RF oxycodone 5 mg Tablet 5 mg PO Q4HR PRN (Reason: Moderate Pain (Level 4-6)) Qty: 10 0RF ondansetron HCl 4 mg tablet 4 mg PO Q8H Qty: 20 0RF albuterol sulfate [Ventolin HFA] 90 mcg/actuation HFA aerosol inhaler 1 inh inhalation QID PRN (Reason: shortness of breath or wheezing) Qty: 8.5 0RF sumatriptan succinate [Imitrex] 100 mg tablet See Rx Instructions .ROUTE .COMPLEX Qty: 8 0RF Rx Instructions: take 1 tab at onset of headache; if no relief, may repeat 1 tab after at least 2 hrs; max = 2 tabs/24 hrs albuterol sulfate [Ventolin HFA] 90 mcg/actuation HFA aerosol inhaler 2 puff inhalation QID PRN (Reason: shortness of breath or wheezing) Qty: 8.5 0RF Diet: Regular Interventions: Discharge Last Done: 01/01/24 14:09 Discharge Checklist - Nursing Last Done: 01/01/24 14:09 Health Concerns: You came into the hospital with a sudden onset of back pain. Your symptoms progressed to headache, visual blurring and problems seeing on your right side. This was combined with a past medical history of Kacey-Danlos syndrome and long COVID. It sounds like there is also some question of whether or not you have POTS disease.As you know, you had 1 episode where your heart rate went up quite high and you had symptoms. We have tried to give you pain medicine for your headache as well as nausea medication. We have done tests to see if we can find any reason for you to be having the symptoms that you are having. We have done blood work to check your electrolytes. Your electrolytes are normal. Your kidney also seems to be functioning at a reasonable rate considering the fact that you have only 1 kidney. Your thyroid is functioning normally. You have no major electrolyte abnormalities. You had a wrist x-ray and a knee x-ray which were normal. You had a CT of your head which was normal. You had a CT angiogram of your chest which did not show any life-threatening pathology there is are some indications that you may have some asthma on your CT of the chest. I would recommend that you follow-up with primary care about this. You also had a CT angiogram of your abdomen pelvis and lower extremities. On this test we did see some gallstones. Therefore, you had an ultrasound of your gallbladder. We see gallstones on that but no evidence that these gallstones are causing major problems. Also on that test we saw some fatty liver. This is not an acute problem, but 1 that should be discussed with primary care. This morning I did tests on your brain to make sure that we are not missing anything. I checked an MRI of your brain as well as a special kind of MRI that looks at the blood vessels in the brain. I do not have the results of the studies. I would prefer for you to stay in the hospital until I have the results of the studies. I am requesting that you follow-up with a primary care doctor within the next 10 days. I know that you have 1 assigned through your insurance company and I am recommending that you utilize that person for hospital follow-up. I am prescribing cough medicine, antinausea medication and pain medication for your headache. I Care Plan Goals: Follow-up with primary care regarding your headaches and elevated heart rate. Print Language: Occitan Patient Instructions: ED Cephalgia Unspecified Stand Alone Forms: PCP List
[2024-01-01 14:02] VITALS: BP 121/68; TEMP 97.7
[2024-01-01] MEDS: METOCLOPRAMIDE 10 MG TABLET PO ONE (14:02)
[2024-01-01] MEDS: dexAMETHasone 4 MG TABLET PO ONE (14:02)
[2024-01-01] MEDS: SUMAtriptan 25 MG TABLET PO ONE (14:03)
[2024-01-01] MEDS: KETOROLAC 15 MG/ML VIAL IVP ONE (14:44)
== END 2024-01-01 14:30 | disposition home or self-care (01) ==
LOC: MS2 13:05 → ED 13:05 → MS2 22:19
PROVIDERS: ADMIT Internal Medicine; ATTEND Internal Medicine
DX: H53.131 Sudden visual loss, right eye; H53.8 Other visual disturbances; F17.200 Nicotine dependence, unspecified, uncomplicated; Q79.60 Ehlers-Danlos syndrome, unspecified; R07.9 Chest pain, unspecified; R10.9 Unspecified abdominal pain; R55 Syncope and collapse; U09.9 Post COVID-19 condition, unspecified; G89.29 Other chronic pain; G43.911 Migraine, unspecified, intractable, with status migrainosus; K76.0 Fatty (change of) liver, not elsewhere classified; R05.9 Cough, unspecified; M54.89 Other dorsalgia; K80.20 Calculus of gallbladder without cholecystitis without obstruction; Z90.5 Acquired absence of kidney